=== PATIENT | female | born 1970 | race Caucasian/White ===

== ENCOUNTER → 2019-08-07 10:33 | Outpatient (BNVA) | payer SELFPAY | PROVIDERS: Family Provider Nurse Practitioner Family; PCP Nurse Practitioner Family; Visit Provider Family Medicine | DX: R21 Rash and other nonspecific skin eruption (principal); I10 Essential (primary) hypertension; I16.0 Hypertensive urgency | CPT/HCPCS: 80053; 83516; 85007; 85027; 86160; 86431; 86705; 86706; 86803; 87340; 87806 ==

== ENCOUNTER → 2019-11-14 09:05 | Outpatient (BNVA) | payer SELFPAY | PROVIDERS: Family Provider Nurse Practitioner Family; PCP Nurse Practitioner Family; Visit Provider Internal Medicine Rheumatology | DX: R76.8 Other specified abnormal immunological findings in serum (principal); Z79.899 Other long term (current) drug therapy; R21 Rash and other nonspecific skin eruption; F10.10 Alcohol abuse, uncomplicated; F17.210 Nicotine dependence, cigarettes, uncomplicated; L93.1 Subacute cutaneous lupus erythematosus; T46.4X5D Adverse effect of angiotensin-converting-enzyme inhibitors, subsequent encounter | CPT/HCPCS: 99204 ==

== ENCOUNTER 2019-12-04 09:52 | Outpatient (CLI) | payer SELFPAY ==
[2019-12-04 10:47] LABS: Bilirubin Urine Neg (NEGATIVE); Blood Urine Neg (Negative); Glucose Urine UA Norm (Normal); Ketones Urine Negative (Negative); Leukocyte Esterase Urine Negative (Negative); Nitrate Urine Negative (Negative); Protein Urine Neg (Negative); Specific Gravity, Urine 1.015 (1.005-1.030); Urine Appearance Clear (CLEAR); Urine Color Straw (Yellow); Urobilinogen Urine Norm (Negative); pH Urine 7 (5-7)
[2019-12-04 10:49] LABS: Add Urine Culture? No; Bacteria Urine TRACE; WBC Urine 0-4 /hpf (0-5)
[2019-12-04 11:00] LABS: Urine Creatinine 33 mg/dL (28-217); Urine Protein Random 4 mg/dL
[2019-12-06 13:44] LABS: Quantiferon Mitogen 8.02 IU/mL; Quantiferon Nil 0.01 IU/mL; Quantiferon Plus TB1 0.01 IU/mL; Quantiferon TB Gold NEGATIVE (NEGATIVE)
== END 2019-12-04 09:53 | disposition home or self-care (01) ==
PROVIDERS: PCP Nurse Practitioner Family; Visit Provider Internal Medicine Rheumatology
DX: L93.1 Subacute cutaneous lupus erythematosus (principal); Z79.899 Other long term (current) drug therapy
CPT/HCPCS: 81001; 82570; 84156; 86480

== ENCOUNTER → 2019-12-19 11:03 | Outpatient (BNVA) | payer SELFPAY | PROVIDERS: PCP Nurse Practitioner Family; Visit Provider Internal Medicine Rheumatology | DX: L93.1 Subacute cutaneous lupus erythematosus (principal); M05.9 Rheumatoid arthritis with rheumatoid factor, unspecified; Z79.899 Other long term (current) drug therapy; R21 Rash and other nonspecific skin eruption; Z79.52 Long term (current) use of systemic steroids; F17.210 Nicotine dependence, cigarettes, uncomplicated | CPT/HCPCS: 99214 ==

== ENCOUNTER → 2020-04-04 10:39 | Outpatient (BNVA) | payer SELFPAY | PROVIDERS: PCP Nurse Practitioner Family; Referring Provider Family Medicine; Visit Provider Family Medicine | DX: Z79.899 Other long term (current) drug therapy (principal); I10 Essential (primary) hypertension | CPT/HCPCS: 80048; 80076; 83735; 85025; 85651; 86140 ==

== ENCOUNTER → 2020-05-26 09:11 | Outpatient (BNVA) | payer SELFPAY | PROVIDERS: PCP Nurse Practitioner Family; Visit Provider Family Medicine | DX: I10 Essential (primary) hypertension (principal); G25.81 Restless legs syndrome; I16.0 Hypertensive urgency; L93.1 Subacute cutaneous lupus erythematosus | CPT/HCPCS: 80053; 80076; 82565; 83735; 85025; 85651; 86140 ==

== ENCOUNTER → 2020-09-15 09:09 | Outpatient (BNVA) | payer SELFPAY | PROVIDERS: PCP Family Medicine; Visit Provider Internal Medicine Rheumatology | DX: M05.79 Rheumatoid arthritis with rheumatoid factor of multiple sites without organ or systems involvement (principal); Z79.899 Other long term (current) drug therapy; M19.90 Unspecified osteoarthritis, unspecified site | CPT/HCPCS: 36415; 80076; 82565; 85025; 86140 ==

== ENCOUNTER → 2020-12-31 09:25 | Outpatient (BNVA) | payer SELFPAY | PROVIDERS: PCP Family Medicine; Visit Provider Family Medicine | DX: I10 Essential (primary) hypertension (principal); G62.9 Polyneuropathy, unspecified; M05.79 Rheumatoid arthritis with rheumatoid factor of multiple sites without organ or systems involvement; G25.81 Restless legs syndrome; Z91.11 Patient's noncompliance with dietary regimen; I16.0 Hypertensive urgency | CPT/HCPCS: 80053; 80061; 85651; 86140 ==

== ENCOUNTER → 2021-05-08 17:50 | Outpatient (BNVA) | payer SELFPAY | PROVIDERS: PCP Family Medicine; Visit Provider Family Medicine | DX: I10 Essential (primary) hypertension (principal); J44.9 Chronic obstructive pulmonary disease, unspecified | CPT/HCPCS: 80053; 80061; 85025; 86140 ==

== ENCOUNTER → 2022-11-12 10:00 | Outpatient (BNVA) | payer MEDICAID, SELFPAY | PROVIDERS: Visit Provider Podiatrist Foot & Ankle Surgery | DX: Q82.8 Other specified congenital malformations of skin (principal) | CPT/HCPCS: 17110; 99203 ==

== ENCOUNTER 2024-12-04 14:33 | Inpatient (IN) | payer MEDICAID, SELFPAY ==
[2024-12-04] VITALS (12 sets, daily range): BP systolic 130–177; BP diastolic 71–109; PULSE 70–87; RESP 19–28; TEMP 36.5–37.1; O2SAT 90–99; BMI 30.4; BMI 31.1
--- NOTE | 2024-12-04 14:49 | ECG_ITS ---
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 Measurements Intervals [place] Rate: 76 P: 164 WA: 172 QRS: 169 QRSD: 104 T: 15 QT: 419 QTc: 472 Interpretive Statements SINUS RHYTHM WITH OCCASIONAL VENTRICULAR PREMATURE COMPLEXES ARM LEADS REVERSED [INVERTED P AND QRS IN I] possible old septal infarction ST-T changes in the anterolateral and inferior leads Compared to ECG 04/24/2018 17:45:31 Ventricular premature complex(es) now present Sinus tachycardia no longer present T-wave abnormality no longer present Possible ischemia no longer present Electronically Signed On 12-06-2024 06:14:58 CDT by Kasi Don M.D. [email or web address] [id number]
--- NOTE | 2024-12-04 14:53 | ECG_ITS ---
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 Measurements Intervals [place] Rate: 75 P: 21 PA: 174 QRS: 29 QRSD: 108 T: 178 QT: 418 QTc: 467 Interpretive Statements SINUS RHYTHM WITH OCCASIONAL VENTRICULAR PREMATURE COMPLEXES SEPTAL MYOCARDIAL INFARCTION , OF INDETERMINATE AGE [40+ ms Q WAVE IN V1/V2] MODERATE T-WAVE ABNORMALITY, CONSIDER LATERAL ISCHEMIA [-0.1+ mV T-WAVE IN I/aVL/V5/V6] MODERATE T-WAVE ABNORMALITY, CONSIDER INFERIOR ISCHEMIA [-0.1+ mV T-WAVE IN II/aVF] Compared to ECG 12/04/2024 14:48:28 Myocardial infarct finding now present T-wave abnormality now present Possible ischemia now present Electronically Signed On 12-06-2024 06:13:51 CDT by Kasi Don M.D. [email or web address] [id number]
--- NOTE | 2024-12-04 14:53 | XRR_ITS ---
PROCEDURE INFORMATION: Exam: XR Chest Exam date and time: 12/04/2024 2:58 PM Age: 54 years old Clinical indication: Shortness of breath; Additional info: SOB TECHNIQUE: Imaging protocol: Radiologic exam of the chest. Views: 1 view. COMPARISON: CR XR chest 1V [id number] 04/24/2018 6:09 PM FINDINGS: Lungs: Generalized increased pulmonary markings or vascularity within the lungs, more prominent lower lungs. Mild subsegmental atelectasis lower lungs as well. This demonstrates interval change from previous exam. No consolidation. Pleural spaces: No significant pleural effusion the costophrenic angles do not appear as sharp as prior exam and trace effusion not excluded. No pneumothorax. Heart/Mediastinum: Borderline prominent cardiac size. Bones/joints: Visualized osseous structures show no acute abnormality. Slight thoracic scoliosis. XR/XR chest 1V portable [id number] IMPRESSION: Borderline prominent cardiac size. Generalized increased pulmonary markings or vascularity within the lungs, more prominent lower lungs, most suggestive of pulmonary vascular congestion or CHF. Bilateral pneumonitis less likely. Possible trace effusion without significant effusion.
--- NOTE | 2024-12-04 15:08 | W.ED.SOB ---
HPI - SOB/Dyspnea General: Chief Complaint: Shortness of Breath/Dyspnea Stated Complaint: RESP. DISTRESS Time Seen by Provider: 12/04/24 14:49 Source: patient and EMS Mode of arrival: EMS Limitations: no limitations History of Present Illness: HPI Narrative: 54-year-old female history of COPD states she has been having increasing shortness of breath throughout the day. Patient is currently requiring 5 L oxygen did get albuterol and route. Patient also had some mild chest pain states that is mainly with her respiratory distress and cough. Pain was sharp in nature was given aspirin and nitro she denies any fever does not wear oxygen at home Associated symptoms: Reports chest pain; Deny abdominal pain, fever(s), nausea or vomiting Related Data Home Medications ?Medication ?Instructions ?Recorded ?Confirmed albuterol sulfate 2.5 mg/3 mL 2.5 mg inhalation Q4H PRN 12/04/24 12/04/24 (0.083 %) solution for nebulization Shortness Of Breath amitriptyline 25 mg tablet 25 mg PO BEDTIME 12/04/24 12/04/24 buspirone 5 mg tablet 5 mg PO Q12H PRN Anxiety 12/04/24 12/04/24 cholecalciferol (vitamin D3) 125 125 mcg PO DAILY 12/04/24 12/04/24 mcg (5,000 unit) tablet (Vitamin D3) duloxetine 60 mg capsule,delayed 60 mg PO DAILY 12/04/24 12/04/24 release fluticasone 250 mcg-salmeterol 50 2 inh inhalation BID 12/04/24 12/04/24 mcg/dose blistr powdr for inhalation (Advair Diskus) hydrochlorothiazide 12.5 mg capsule 12.5 mg PO DAILY 12/04/24 12/04/24 hydroxychloroquine 200 mg tablet 200 mg PO BID 12/04/24 12/04/24 ibuprofen 800 mg tablet 800 mg PO Q6H 12/04/24 12/04/24 metoprolol succinate 200 mg 200 mg PO DAILY 12/04/24 12/04/24 tablet,extended release 24 hr omeprazole 20 mg capsule,delayed 20 mg PO DAILY 12/04/24 12/04/24 release prednisone 5 mg tablet 5 mg PO DAILY 12/04/24 12/04/24 tizanidine 2 mg tablet 20 mg PO BEDTIME 12/04/24 12/04/24 Previous Rx's ?Medication ?Instructions ?Recorded losartan 100 mg tablet 100 mg PO DAILY 30 days #30 tabs 09/14/21 Allergies Allergy/AdvReac Type Severity Reaction Status Date / Time lisinopril Allergy Intermediate rash Verified 08/10/24 09:34 leflunomide Allergy hives Verified 08/10/24 09:34 Penicillins Allergy unknown Verified 08/10/24 09:34 Review of Systems Const: Denies: fever(s), chills, body aches or change in appetite ENMT: Denies: throat pain or dental pain Card: Reports: chest pain Resp: Reports: dyspnea and non-productive cough GI: Denies: abdominal pain, nausea, vomiting or diarrhea Musc: Denies: neck pain or back pain Skin/Breast: Denies: rash Neuro: Denies: headache(s) PFSH ED PFSH: Medical History Immunization counseling High risk medication use Seropositive rheumatoid arthritis of multiple sites Celebrex caused rash. Alcohol abuse SS-A antibody positive Immunization counseling High risk medication use Subacute cutaneous lupus erythematosus GERD (gastroesophageal reflux disease) Anxiety Benign essential hypertension Rash maybe with HCTZ and lisinopril COPD (chronic obstructive pulmonary disease) TOOTIE (generalized anxiety disorder) Lichenoid actinic keratosis Asymptomatic hypertensive urgency Surgical History H/O section Family History Other CAD (coronary artery disease) Cancer Diabetes Denies family history of Rheumatoid arthritis Chronic kidney disease (CKD) Systemic lupus erythematosus (SLE) in adult Hypertension Stroke Social History Smoking and tobacco/nicotine status: unknown if used tobacco/nicotine Quit status (tobacco/nicotine): not considering quitting Alcohol intake: current Alcohol intake frequency: 0-2 Drinks per Day Substance/Drug Use: never Female Reproductive History: Spontaneous abortions: No Physical Exam Const: COMMON NORMALS: patient oriented x3 GENERAL APPEARANCE: in distress HENMT: COMMON NORMALS: normocephalic and atraumatic HEAD & SCALP: normocephalic and atraumatic Eye: COMMON NORMALS: conjunctivae normal CONJUNCTIVA: Yes conjunctivae normal Neck/C-Spine: COMMON NORMALS: full ROM and supple Chest: COMMONS NORMALS: normal inspection of the chest Resp: EFFORT & INSPECTION: Yes tachypneic and Yes respiratory distress AUSCULTATION: rales and wheezes Cardio: COMMON NORMALS: regular rate, regular rhythm and No murmurs present (Cardio) RATE: regular rate RHYTHM: regular rhythm GI: COMMON NORMALS: Normal to inspection, nondistended, normoactive bowel sounds present, Soft to palpation, non-tender and no masses PALPATION: Yes Soft to palpation Extremity: COMMON NORMALS: normal to inspection and full ROM Neuro: COMMON NORMALS: patient oriented x3, moves all extremities and no focal motor deficits Psych: COMMON NORMALS: mental status grossly normal, Normal thought process present and cooperative THOUGHT PROCESS: Normal thought process present Skin: COMMON NORMALS: no rashes or lesions noted and no wounds GENERAL SKIN EXAM: no rashes or lesions noted Course Vital Signs: Vital signs: Vital Signs Temperature 97.7 F 12/04/24 14:44 Pulse Rate 82 12/04/24 16:30 Respiratory Rate 19 H 12/04/24 16:30 Blood Pressure 130/71 12/04/24 16:15 Pulse Oximetry 99 12/04/24 16:30 Oxygen Delivery Me thod Nasal Cannula 12/04/24 16:30 Oxygen Flow Rate 3 12/04/24 16:30 MDM - SOB/Dyspnea Medical Decision Making Patient presents here with shortness of breath does have an elevated BNP pulm edema on x-ray and CT likely new onset congestive heart failure she has had no chest pain here spoke to hospitalist will admit at this time. Medical Records I reviewed the patient's medical records. Lab Data I reviewed the patient's lab results. 12/04/24 15:00 12/04/24 15:00 Labs/Radiology: Radiology Impressions Chest X-Ray 12/04/24 14:53 IMPRESSION: Borderline prominent cardiac size. Generalized increased pulmonary markings or vascularity within the lungs, more prominent lower lungs, most suggestive of pulmonary vascular congestion or CHF. Bilateral pneumonitis less likely. Possible trace effusion without significant effusion. Chest CTA 12/04/24 15:38 IMPRESSION: 1. No CT findings of pulmonary embolus. 2. Scattered ill-defined ground-glass opacity within the lungs that is more prominent more confluent within the lower lungs, along with small bilateral posterior pleural effusions and borderline to slightly prominent cardiac size. Findings suggest CHF with scattered edema and small effusions. 3. Mild arteriosclerosis thoracic aorta [id number] coronary artery calcification. 4. Incidental findings of cholelithiasis. Laboratory Results WBC 12.47 10^3/uL (3.29-11.43) H 12/04/24 15:00 RBC 3.95 10^6/uL (3.85-5.65) 12/04/24 15:00 Hgb 13.90 g/dL (11.27-16.99) 12/04/24 15:00 Hct 40.8 % (36-47) 12/04/24 15:00 MCV 103.3 fl (85-98) H 12/04/24 15:00 MCH 35.2 pg (27-33) H 12/04/24 15:00 MCHC 34.1 g/dL (30-55) 12/04/24 15:00 RDW 16.7 % (12.1-15.1) H 12/04/24 15:00 Plt Count 226 10^3/cmm (157-399) 12/04/24 15:00 MPV 9.1 fL (7.4-10.4) 12/04/24 15:00 Neut % (Auto) 83.6 % 12/04/24 15:00 Lymph % (Auto) 9.3 % 12/04/24 15:00 Mcclain % (Auto) 5.3 % 12/04/24 15:00 Eos % (Auto) 0.6 % 12/04/24 15:00 Baso % (Auto) 0.4 % 12/04/24 15:00 Neut # (Auto) 10.42 10^3/uL (1.8-7.7) H 12/04/24 15:00 Lymph # (Auto) 1.2 10^3/uL (0.8-4.8) 12/04/24 15:00 Mcclain # (Auto) 0.7 10^3/uL (0.2-0.9) 12/04/24 15:00 Eos # (Auto) 0.1 10^3/uL (0.0-0.8) 12/04/24 15:00 Baso # (Auto) 0.1 10^3/uL (0.0-0.1) 12/04/24 15:00 Nucleated RBC % (auto) 0 % 12/04/24 15:00 Nucleated RBCs # 0.0 /100WBC 12/04/24 15:00 PT 13.00 SECONDS (12.1-14.9) 12/04/24 15:00 INR 0.91 (0.8-1.2) 12/04/24 15:00 Specimen Type Arterial 12/04/24 15:43 Sample Site Radial, left 12/04/24 15:43 ABG pH 7.43 (7.35-7.45) 12/04/24 15:43 ABG pCO2 43.6 mmHg (35-45) 12/04/24 15:43 ABG pO2 81.4 mmHg (80.0-100.0) 12/04/24 15:43 ABG HCO3 28.7 mmol/L (22-26) H 12/04/24 15:43 ABG Base Excess 3.7 mmol/L (-2.0-2.0) H 12/04/24 15:43 Chandana Test Pos 12/04/24 15:43 Hematocrit 43.6 % (37-47) 12/04/24 15:43 Hgb O2 Saturation 93.1 % (95-100) L 12/04/24 15:43 Carboxyhemoglobin 3.2 %THgb (0.4-20.1) 12/04/24 15:43 Methemoglobin 0.2 % (0.4-1.5) L 12/04/24 15:43 Total Hemoglobin 14.2 g/dL (12-16) 12/04/24 15:43 O2 Delivery Device Nc 12/04/24 15:43 O2 Liters/Min 4.0 % 12/04/24 15:43 Fox Farmer ID Wal[facility] 12/04/24 15:43 Sodium 139 mmol/L (136-145) 12/04/24 15:00 Potassium 3.5 mmol/L (3.5-5.1) 12/04/24 15:00 Chloride 98 mmol/L (98-107) 12/04/24 15:00 Carbon Dioxide 27 mmol/L (22-29) 12/04/24 15:00 Anion Gap 17.5 (5-19) 12/04/24 15:00 BUN 20 mg/dL (6-20) 12/04/24 15:00 Creatinine 0.9 mg/dL (0.5-0.9) 12/04/24 15:00 GFR Calculation 64.8 mL/min (90-130) L 12/04/24 15:00 Glucose 184 mg/dL (65-115) H 12/04/24 15:00 Calculated Osmolality 295 mOsm/kg (285-295) 12/04/24 15:00 Calcium 9.4 mg/dL (8.5-10.5) 12/04/24 15:00 Total Bilirubin 0.4 mg/dL (0.15-1.2) 12/04/24 15:00 AST 51 U/L (0-32) H 12/04/24 15:00 ALT 33 U/L (0-33) 12/04/24 15:00 Alkaline Phosphatase 114 U/L (35-105) H 12/04/24 15:00 Troponin T Baseline 39 ng/L (0-10) H 12/04/24 15:00 NT-Pro-B Natriuret Pep 2667 pg/mL (0-125) H 12/04/24 15:00 Total Protein 6.2 g/dL (6.6-8.7) L 12/04/24 15:00 Albumin 3.9 g/dL (3.5-5.2) 12/04/24 15:00 Globulin 2.3 g/dL (1.3-4.6) 12/04/24 15:00 Influenza A (PCR) Negative (Negative) 12/04/24 15:10 Influenza Type B (PCR) Negative (Negative) 12/04/24 15:10 RSV (PCR) Negative (Negative) 12/04/24 15:10 SARS-CoV-2 (PCR) Negative (Negative) 12/04/24 15:10 All radiology interpretation(s) finalized by discharge Discharge Plan Discharge Patient Disposition: Admitted As Inpatient Clinical Impression: Pulmonary edema, Acute respiratory failure with hypoxia Condition: Stable Coding Level of Care Code ED Medicaid Plan Compliance Director for Billie Lopez
[2024-12-04 15:18] LABS: Basophils # 0.1 10^3/uL (0.0-0.1); Basophils % 0.4 %; Eosinophils # 0.1 10^3/uL (0.0-0.8); Eosinophils % 0.6 %; Hematocrit 40.8 % (36-47); Lymphocytes # 1.2 10^3/uL (0.8-4.8); Lymphocytes % 9.3 %; Mean Corpuscular HGB Conc 34.1 g/dL (30-55); Mean Corpuscular Hemoglobin 35.2 pg (27-33); Mean Corpuscular Volume 103.3 fl (85-98); Mean Platelet Volume 9.1 fL (7.4-10.4); Monocytes # 0.7 10^3/uL (0.2-0.9); Monocytes % 5.3 %; Neutrophils # 10.42 10^3/uL (1.8-7.7); Neutrophils % 83.6 %; Nucleated Red Blood Cells % 0 %; Platelet Count 226 10^3/cmm (157-399); Red Blood Count 3.95 10^6/uL (3.85-5.65); Red Cell Distribution Width 16.7 % (12.1-15.1); White Blood Count 12.47 10^3/uL (3.29-11.43)
[2024-12-04 15:28] LABS: INR 0.91 (0.8-1.2)
[2024-12-04 15:35] LABS: Troponin(5th) Baseline 39 ng/L (0-10)
--- NOTE | 2024-12-04 15:38 | CTR_ITS ---
PROCEDURE INFORMATION: Exam: CTA Chest With Contrast Exam date and time: 12/04/2024 4:21 PM Age: 54 years old Clinical indication: Shortness of breath; Additional info: SOB TECHNIQUE: Imaging protocol: Computed tomographic angiography of the chest with contrast. Exam focused on the arteries. 3D rendering (Not supervised by radiologist): MIP and/or 3D reconstructed images were created by the technologist. Radiation optimization: All CT scans at this facility use at least one of these dose optimization techniques: automated exposure control; mA and/or kV adjustment per patient size (includes targeted exams where dose is matched to clinical indication); or iterative reconstruction. Contrast material: OMNI 350; Contrast volume: 100 ml; Contrast route: INTRAVENOUS (IV); COMPARISON: CR XR chest 1V portable [id number] 12/04/2024 2:58 PM RADIATION DOSE METRICS: Total DLP (mGy-cm): 411.8 FINDINGS: Pulmonary arteries: No hypodense filling defect is seen within the pulmonary arteries or their branches to indicate pulmonary embolus. Aorta: Mild arteriosclerosis of the thoracic aorta with mild prominence of the ascending thoracic aorta of 3.8 cm. No findings to indicate dissection. Lungs: Lung windows demonstrate scattered ill-defined ground-glass opacity within the lungs with more prominent or confluent appearance within the lower lungs. Component of basilar atelectasis. No consolidation. Pleural spaces: Small bilateral posterior pleural effusions are seen. No pneumothorax. Heart: Borderline to slightly prominent cardiac size, particularly left side of the heart. No significant pericardial effusion. Slsw-ua-[id number] coronary artery calcification. RV/LV ratio is less than 1. Lymph nodes: A few mildly reactive mediastinal lymph nodes without significant or pathologically enlarged appearing lymph nodes. Gallbladder and biliary ducts: Images through the upper-most abdomen demonstrate cholelithiasis. Bones/joints: Mild spondylotic change thoracic spine. Mild thoracic dextroscoliosis. Soft tissues: Unremarkable. CT/CT angio chest PE protcl [id number] IMPRESSION: 1. No CT findings of pulmonary embolus. 2. Scattered ill-defined ground-glass opacity within the lungs that is more prominent more confluent within the lower lungs, along with small bilateral posterior pleural effusions and borderline to slightly prominent cardiac size. Findings suggest CHF with scattered edema and small effusions. 3. Mild arteriosclerosis thoracic aorta [id number]-[id number]-[id number] coronary artery calcification. 4. Incidental findings of cholelithiasis.
[2024-12-04 15:52] LABS: Influenza A NEGATIVE (Negative); Influenza B NEGATIVE (Negative); Respiratory Syncytial Virus Ce NEGATIVE (Negative); SARS-CoV-2 PCR NEGATIVE (Negative)
[2024-12-04 15:54] LABS: ABG PCO2 43.6 mmHg (35-45); ABG PH Result 7.43 (7.35-7.45); Arterial Blood Gas Hematocrit 43.6 % (37-47); Base Excess ABG 3.7 mmol/L (-2.0-2.0); Blood Gas Allen Test Pos; Blood Gas Operator Identificat WALCI; Blood Gas Sample Site Radial, left; Blood Gas Sample Type Arterial; Carboxyhemoglobin 3.2 %THgb (0.4-20.1); HCO3 ABG 28.7 mmol/L (22-26); HGB O2 Sat 93.1 % (95-100); Methemoglobin 0.2 % (0.4-1.5); Oxygen Device NC; PO2 ABG 81.4 mmHg (80.0-100.0); Total Hemoglobin 14.2 g/dL (12-16)
[2024-12-04] MEDS: albuterol 2.5 mg/3 mL Neb INHALATION (15:59)
[2024-12-04 16:12] LABS: Alanine Aminotransferase 33 U/L (0-33); Albumin Level 3.9 g/dL (3.5-5.2); Alkaline Phosphatase 114 U/L (35-105); Anion Gap 17.5 (5-19); Aspartate Amino Transferase 51 U/L (0-32); Blood Urea Nitrogen 20 mg/dL (6-20); Calcium 9.4 mg/dL (8.5-10.5); Carbon Dioxide 27 mmol/L (22-29); Chloride 98 mmol/L (98-107); Creatinine Clr Calc Pharmacy 74.2679; Globulin 2.3 g/dL (1.3-4.6); Glomerular Filtration Rate 64.8 mL/min (90-130); Glucose 184 mg/dL (65-115); NT Pro B Type Natriuretic Pept 2667 pg/mL (0-125); Osmolality Calculated 295 mOsm/kg (285-295); Potassium 3.5 mmol/L (3.5-5.1); Sodium 139 mmol/L (136-145); Total Bilirubin 0.4 mg/dL (0.15-1.2); Total Protein 6.2 g/dL (6.6-8.7)
[2024-12-04] MEDS: iohexol 350 mg/mL 500 mL Btl (per mL) IV (16:22)
[2024-12-04] MEDS: methylPREDNISolone sod succ 125 mg/2 mL INJ IVP (16:34)
[2024-12-04] MEDS: AZITHROMYCIN ADD-Vantage 500 MG in 0.9% NaCl ADD-Vantage 250 ML 250 MG IV (16:35)
[2024-12-04] MEDS: cefTRIAXone 1,000 mg SDV 1000 MG IVP (16:35)
--- NOTE | 2024-12-04 17:30 | USCV_ITS ---
Arlen Santo Age: 54 Gender: F : 1970 Exam Date: 12/04/2024 22:12 Ordering Phys: Mason Gurrola DO Technologist: JAVIER [place] [facility] [place] new dx CHF, history of COPD, O2-dependent 5L BP: 173 / 91 HR: 79 Rhythm: Sinus Technical Quality: Adequate MEASUREMENTS (Male / Female) Normal Values 2D ECHO LV Diastolic Diameter PLAX 4.8 cm 4.2 - 5.9 / 3.9 - 5.3 cm IVS Diastolic Thickness 1.5 cm 0.6 - 1.0 / 0.6 - 0.9 cm IVS Systolic Thickness 1.5 cm LVPW Diastolic Thickness 1.4 cm 0.6 - 1.0 / 0.6 - 0.9 cm LVPW Systolic Thickness 2.1 cm LVOT Diameter 2.4 cm LV Ejection Fraction 2D Teich 65.0 % LV Ejection Fraction MOD 4C 59.9 % LV Ejection Fraction MOD 2C 39.0 % LV Ejection Fraction 2C AL 41.1 % LA Diameter 3.1 cm Aorta at Sinotubular Diameter 2.4 cm IVC Diameter 1.8 cm M-MODE LA Ao Ratio MM 1.2 AV Cusp Separation MM 1.8 cm DOPPLER AV Peak Velocity 146.0 cm/s LVOT Peak Velocity 76.0 cm/s AV Area Cont Eq vti 2.8 cm squared AV Area Cont Eq pk 2.3 cm squared MV Peak Velocity 77.0 cm/s MV Area PHT 4.8 cm squared Mitral E to A Ratio 1.2 TV Peak E Velocity 38.0 cm/s PV Peak Velocity 112.0 cm/s FINDINGS Left Ventricle Moderate left ventricular hypertrophy. Normal left ventricular size and systolic function, EF 60%. Mild hypokinesia of the basal inferolateral segment.Grade II/IV diastolic dysfunction, moderately elevated filling pressures. Right Ventricle The right ventricle is normal in size and function. Right Atrium The right atrium is normal in size. Left Atrium Mildly increased left atrial size. Mitral Valve No gross abnormalities noted Aortic Valve Mild to moderate aortic valve regurgitation. Thickened aortic valve. Tricuspid Valve No gross abnormalities noted Pulmonic Valve Pulmonic valve not well visualized. Pericardium Normal pericardium without effusion. Aorta Normal aortic annulus size. IVC Normal inferior vena cava. CONCLUSIONS Moderate left ventricular hypertrophy. Normal left ventricular size and systolic function, EF 60%. Mild hypokinesia of the basal inferolateral segment.Grade II/IV diastolic dysfunction, moderately elevated filling pressures. Mildly increased left atrial size. Mild to moderate aortic valve regurgitation. Thickened aortic valve. There is no pericardial effusion. There are no intracardiac masses. No similar previous studies are available for comparison Dr Kasi Don MD [facility] (Electronically Signed) Final Date: 05 December 2024 07:52 S
--- NOTE | 2024-12-04 17:31 | PM.HP ---
Providers/Chief Complaint Admitting Physician: Masno Gurrola DO Primary Care Provider: Roberto Carlos Carrera Chief Complaint: RESP. DISTRESS History of Present Illness Arlen Santo is a 54 year old female to the emergency due to shortness of breath that have been increasing throughout the day. 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 It was very distressing to her to only be able to give her address. She was unable to even speak to her neighbor asked for help. In the emergency room she also reported some chest pain. Initially it was felt that she had COPD exacerbation or possible pneumonia; however: CT to rule out PE was negative for PE and found pulmonary edema. She was started on IV antibiotics and now was given Lasix. Initially she was on 5 L but has been able to wean down to 3 L and she is feeling remarkably better. She denies any history of CHF. She does have a longstanding hypertension currently her blood pressures are elevated in the ER. Patient has lupus and she takes Lasix and hide hydroxychloroquine. Otherwise she takes ibuprofen on a regular basis. Also of note she was recently on Omnicef for a lung infection but she did not finish her antibiotics Review of Systems Const: Denies: fever(s) or chills Eyes: Denies: change in vision ENMT: Denies: throat pain or nasal congestion Card: Reports: chest pain (Reports that it is actually located in her abdomen and related to GERD); Denies: palpitations Resp: Reports: dyspnea; Denies: productive cough GI: Reports: heartburn (Takes omeprazole); Denies: abdominal pain, nausea, vomiting or change in stool character : Denies: dysuria Musc: Denies: back pain or extremity pain Skin/Breast: Denies: rash or lesions Neuro: Denies: headache(s) or dizziness Psych: Denies: anxiety or depression Kip/Lymph: Denies: easy bruising or easy bleeding Medications/Allergies Home Medications ?Medication ?Instructions ?Recorded ?Confirmed ?Last Taken ?Type losartan 100 mg tablet 100 mg PO DAILY 30 days #30 tabs 09/14/21 12/04/24 12/04/24 Rx albuterol sulfate 2.5 mg/3 mL 2.5 mg inhalation Q4H PRN 12/04/24 12/04/24 Unknown History (0.083 %) solution for nebulization Shortness Of Breath amitriptyline 25 mg tablet 25 mg PO BEDTIME 12/04/24 12/04/24 12/03/24 History buspirone 5 mg tablet 5 mg PO Q12H PRN Anxiety 12/04/24 12/04/24 Unknown History cholecalciferol (vitamin D3) 125 125 mcg PO DAILY 12/04/24 12/04/24 12/04/24 History mcg (5,000 unit) tablet (Vitamin D3) duloxetine 60 mg capsule,delayed 60 mg PO DAILY 12/04/24 12/04/24 12/04/24 History release fluticasone 250 mcg-salmeterol 50 2 inh inhalation BID 12/04/24 12/04/24 12/04/24 History mcg/dose blistr powdr for inhalation (Advair Diskus) hydrochlorothiazide 12.5 mg capsule 12.5 mg PO DAILY 12/04/24 12/04/24 12/04/24 History hydroxychloroquine 200 mg tablet 200 mg PO BID 12/04/24 12/04/24 Unknown History ibuprofen 800 mg tablet 800 mg PO Q6H 12/04/24 12/04/24 12/04/24 History metoprolol succinate 200 mg 200 mg PO DAILY 12/04/24 12/04/24 12/04/24 History tablet,extended release 24 hr omeprazole 20 mg capsule,delayed 20 mg PO DAILY 12/04/24 12/04/24 12/04/24 History release prednisone 5 mg tablet 5 mg PO DAILY 12/04/24 12/04/24 12/04/24 History tizanidine 2 mg tablet 20 mg PO BEDTIME 12/04/24 12/04/24 12/03/24 History Allergies Allergy/AdvReac Type Severity Reaction Status Date / Time lisinopril Allergy Intermediate rash Verified 08/10/24 09:34 leflunomide Allergy hives Verified 08/10/24 09:34 Penicillins Allergy unknown Verified 08/10/24 09:34 PFSH Acute PFSH: Medical History Immunization counseling High risk medication use Seropositive rheumatoid arthritis of multiple sites Celebrex caused rash. Alcohol abuse SS-A antibody positive Immunization counseling High risk medication use Subacute cutaneous lupus erythematosus GERD (gastroesophageal reflux disease) Anxiety Benign essential hypertension Rash maybe with HCTZ and lisinopril COPD (chronic obstructive pulmonary disease) TOOTIE (generalized anxiety disorder) Lichenoid actinic keratosis Asymptomatic hypertensive urgency Surgical History H/O section Family History Other CAD (coronary artery disease) Cancer Diabetes Denies family history of Rheumatoid arthritis Chronic kidney disease (CKD) Systemic lupus erythematosus (SLE) in adult Hypertension Stroke Social History Smoking and tobacco/nicotine status: unknown if used tobacco/nicotine Quit status (tobacco/nicotine): not considering quitting Alcohol intake: current Alcohol intake frequency: 0-2 Drinks per Day Substance/Drug Use: never Female Reproductive History: Spontaneous abortions: No Vitals/I&O/Wt Last Vital Signs Temp 97.7 F 12/04/24 14:44 Pulse 87 12/04/24 17:15 Resp 19 H 12/04/24 16:30 BP 173/91 12/04/24 17:15 Pulse Ox 93 12/04/24 17:15 O2 Del Method Nasal Cannula 12/04/24 17:15 O2 Flow Rate 3 12/04/24 17:15 Weight last 48 hrs Weight 83.007 kg Physical Exam Narrative: 54-year-old white female who appears older than her stated age is in mild distress due to shortness of breath. Neuro she is alert and oriented to person place time and situation her exam is nonfocal HEENT head is normocephalic atraumatic pupils equal round reactive to light and accommodation extraocular muscles are intact there is no scleral icterus neck is supple no JVD carotid bruits or lymphadenopathy mucous membranes are moist and pink without lesions or exudates Heart minimally tachycardic no murmur click gallop or rub Lungs bilateral lower lung zones positive for crackles a few wheezes on expiration Abdomen obese soft nontender nondistended positive bowel sounds no hepatosplenomegaly Extremities +1 pitting edema fdc to her knee Back no CVA tenderness mild kyphosis no scoliosis Psych mood and affect are appropriate for illness Skin no rashes or lesions noted Data 12/04/24 15:00 12/04/24 15:00 Micro: Microbiology 12/04/24 15:55 Blood Culture - Preliminary Blood SPECIMEN COLLECTED 12/04/24 16:00 Blood Culture - Preliminary Blood SPECIMEN COLLECTED CTA Chest: Radiologist's impression: IMPRESSION: 1. No CT findings of pulmonary embolus. 2. Scattered ill-defined ground-glass opacity within the lungs that is more prominent more confluent within the lower lungs, along with small bilateral posterior pleural effusions and borderline to slightly prominent cardiac size. Findings suggest CHF with scattered edema and small effusions. 3. Mild arteriosclerosis thoracic aorta [id number] coronary artery calcification. 4. Incidental findings of cholelithiasis. EKG 1: My Interpretation: Normal sinus rhythm at a rate of 75. 1 PAC noted Poor R wave progression suggestive of a septal ND historically EKG computer-generated impression: SINUS RHYTHM WITH OCCASIONAL VENTRICULAR PREMATURE COMPLEXES SEPTAL MYOCARDIAL INFARCTION , OF INDETERMINATE AGE [40+ ms Q WAVE IN V1/V2] MODERATE T-WAVE ABNORMALITY, CONSIDER LATERAL ISCHEMIA [-0.1+ mV T-WAVE IN I/aVL/V5/V6] MODERATE T-WAVE ABNORMALITY, CONSIDER INFERIOR ISCHEMIA A&P Assessment and plan (1) New onset of congestive heart failure: Admit to CSU. Placed telemetry Follow troponins Lasix twice a day starting tomorrow. Dose to be given tonight from ER Echo tomorrow Hold beta-aster with new onset CHF (2) Pulmonary edema: As above (3) Acute respiratory failure with hypoxia: Currently on 3 L nasal cannula titrate as indicated (4) Tobacco use: Patient reports she is trying to quit and down to 2 cigarettes a day. She requests no patch. I encouraged her to quit. (5) GERD (gastroesophageal reflux disease): Continue omeprazole (6) Benign essential hypertension: Patient takes metoprolol 200 a day, losartan 100 a day hydrochlorothiazide 12.5 a day for blood pressure. Hold metoprolol and hydrochlorothiazide. Hydralazine and Imdur initiated for tomorrow morning PDMP PDMP Reviewed: Not Reviewed Attestations Medical Necessity Statement*: Patient requires a 2 midnight stay for new onset CHF she requires diuresis with monitoring of electrolytes echocardiogram and additional laboratory studies. She is at high risk of acute decompensation with further respiratory failure. Coding Level of Care Code Acute Code for Chg Fwd Diagnoses New onset of congestive heart failure I50.9 Pulmonary edema J81.1 Acute respiratory failure with hypoxia J96.01 Tobacco use Z72.0 GERD (gastroesophageal reflux disease) K21.9 Benign essential hypertension I10
[2024-12-04 17:35] LABS: Troponin 5 2HR 39.81 ng/L (0-10); Troponin 5 2HR Delta 0.81 ABS# (0-10)
[2024-12-04] MEDS: FUROsemide 10 mg/mL SDV 10mL 60 MG IVP (17:37)
[2024-12-04] MEDS: potassium chloride ER 20 mEq Tablet 40 MEQ PO (18:33)
[2024-12-04] MEDS: enoxaparin 40 mg/0.4 mL Syringe SUBCUT (18:33)
[2024-12-04] MEDS: hyDRALAzine 50 mg Tablet PO (20:45)
--- NOTE | 2024-12-04 20:53 | ECG_ITS ---
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 Measurements Intervals [place] Rate: 83 P: 33 AK: 171 QRS: 25 QRSD: 101 T: 178 QT: 382 QTc: 450 Interpretive Statements SINUS RHYTHM SEPTAL MYOCARDIAL INFARCTION , OF INDETERMINATE AGE [40+ ms Q WAVE IN V1/V2] MODERATE T-WAVE ABNORMALITY, CONSIDER ANTEROLATERAL ISCHEMIA [-0.1+ mV T-WAVE IN V3-V6] MODERATE T-WAVE ABNORMALITY, CONSIDER INFERIOR ISCHEMIA [-0.1+ mV T-WAVE IN II/aVF] Compared to ECG 12/04/2024 14:52:16 Ventricular premature complex(es) no longer present Myocardial infarct finding still present T-wave abnormality still present Possible ischemia still present Electronically Signed On 12-06-2024 06:26:49 CDT by Kasi Don M.D. [id number] [id number]
[2024-12-04 21:53] LABS: Troponin 5 6HR 33.05 ng/L (0-10)
[2024-12-04 21:59] LABS: Troponin 5 6HR Delta -5.95 ng/L (0-12)
[2024-12-05] VITALS (7 sets, daily range): BP systolic 143–179; BP diastolic 60–91; PULSE 83–106; RESP 16–23; TEMP 36.4–37; O2SAT 92–97
[2024-12-05 05:32] LABS: Estmated Average Glucose 128; Hemoglobin A1C 6.1 % (4.0-6.0)
[2024-12-05 05:37] LABS: Anion Gap 18.7 (5-19); Blood Urea Nitrogen 22 mg/dL (6-20); Calcium 10.2 mg/dL (8.5-10.5); Carbon Dioxide 26 mmol/L (22-29); Chloride 94 mmol/L (98-107); Creatinine Clr Calc Pharmacy 83.1245; Glomerular Filtration Rate 74.2 mL/min (90-130); Glucose 246 mg/dL (65-115); Magnesium 1.7 mg/dL (1.7-2.3); Osmolality Calculated 292 mOsm/kg (285-295); Potassium 3.7 mmol/L (3.5-5.1); Sodium 135 mmol/L (136-145); Thyroid Stimulating Hormone 0.82 uIU/mL (0.27-4.20)
[2024-12-05 05:38] LABS: Chol HDL Ratio 2.93 mg/dL (0.0-4.40); Cholesterol 255 mg/dL (0-200); HDL Cholesterol 87 mg/dL (60-100); LDL Cholesterol Calculated 147 mg/dL (50-129); LDL HDL Ratio 1.69 RATIO (0.00-3.22); Triglycerides 107 mg/dL (0-150)
[2024-12-05] MEDS: FUROsemide 10 mg/mL SDV 4mL 40 MG IVP ×3 (05:43→17:38)
[2024-12-05] MEDS: potassium chloride ER 20 mEq Tablet 40 MEQ PO ×2 (08:51→17:37)
[2024-12-05] MEDS: pantoprazole DR 40 mg Tablet PO (08:51)
[2024-12-05] MEDS: hyDRALAzine 50 mg Tablet PO ×3 (08:52→20:35)
[2024-12-05] MEDS: isosorbide mononitrate ER 30 mg Tablet PO (08:52)
--- NOTE | 2024-12-05 08:58 | PC.NURSE ---
patient is requesting hydrochloriquin for her lupus. Dr Mullins notified.
--- NOTE | 2024-12-05 10:35 | PC.CHAP ---
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 machinist visit [] Patient/Family/Request visit [] Outpatient visit [] Follow-up visit [] Physician referral [] Code/Alert [x] Routine visit [] Staff referral [] Actively dying [] Patient sleeping [] Family support [] [] Out of room [] Palliative care [] [] Receiving care in room [] Pre-surgical visit [] Trauma [] Long length of stay [] ICU visit [] Other: Relational/Emotional Strength [x] Patient feels connected with others/family/visitors/staff [] Distress [] Loneliness/isolation [] Abandonment Spirituality of Patient [x] Person of Noemi [] Attends Orthodox of their Noemi [x] Believes in Prayer [] Reads Bible or Scientology materials [] There are Spiritual issues to be addressed Power 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 Interventions [x] Prayer [x] Active listening [] Non-anxious presence [x] Spiritual/emotional support [] Crisis/trauma care [] Spiritual counseling [] Bereavement support [] Provided bereavement packet [] Provided Bible/devotional materials [] Provided toy/stuffed animal, coloring book to patient or family member [] Provided Communion [] Anointing/[place] [] Salvation [x] Completed spiritual assessment [] Other: Impact on Illness or Injury [] Angry [] Fearful [] Anxious [] Often cries [] Exhaustion [] Unable to work [] Unable to attend restoration [] Unable to walk/stand [] Unable to read [] Unable to drive [] Unable to eat/drink [] Unable to sleep [] Unable to be with family [] Patient intubated [] Other: Summary Time spent with patient 5 min
[2024-12-05] MEDS: acetaminophen 325 mg Tablet 650 MG PO (11:39)
[2024-12-05] MEDS: lanolin oint 7 gm 1 APPLIC TOPICAL (11:59)
--- NOTE | 2024-12-05 13:23 | P.PN_ITS ---
Subjective 2 Subjective: She has been having peripheral edema and orthopnea. She does not use oxygen at baseline she is currently on 2 L/min O2. She also reports chest pressure. She recently quit smoking. Vitals/I&O/Wt Last Vital Signs Temp 97.7 F 12/05/24 11:35 Pulse 86 12/05/24 11:35 Resp 16 12/05/24 11:35 BP 174/69 12/05/24 11:35 Pulse Ox 94 12/05/24 11:35 O2 Del Method Nasal Cannula 12/05/24 11:35 O2 Flow Rate 3 12/04/24 17:15 12/04/24 12/05/24 12/05/24 22:59 06:59 14:59 Intake Total 400 / 400 120 / 520 720 / 720 Output Total 240 / 240 Balance 400 / 400 -120 / 280 720 / 720 Weight last 48 hrs Weight 82.146 kg Weight 84.907 kg Weight 83.007 kg Physical Exam 2 Const: COMMON NORMALS: no acute distress and patient oriented x3 HENMT: COMMON NORMALS: normocephalic and atraumatic HEAD & SCALP: n ormocephalic and atraumatic Eye: COMMON NORMALS: Equal, round and reactive pupils present and EOMs intact bilaterally PUPIL: Yes Equal, round and reactive pupils present Neck/C-Spine: COMMON NORMALS: supple and no JVD Chest: COMMONS NORMALS: normal inspection of the chest and normal palpation of entire chest wall Resp: COMMON NORMALS: normal respiratory effort AUSCULTATION: crackles Cardio: COMMON NORMALS: no JVD, regular rate, regular rhythm and No murmurs present (Cardio) RATE: regular rate RHYTHM: regular rhythm GI: COMMON NORMALS: Normal to inspection, nondistended, normoactive bowel sounds present : COMMON NORMALS: Yes no CVA tenderness BLADDER/KIDNEY EXAM: Yes no CVA tenderness Back/Pelvis: COMMON NORMALS: no CVA tenderness Extremity: COMMON NORMALS: normal to inspection GENERAL: Yes edema (Trace edema) Neuro: COMMON NORMALS: patient oriented x3 Skin: COMMON NORMALS: no rashes or lesions noted GENERAL SKIN EXAM: no rashes or lesions noted Data 12/04/24 15:00 12/05/24 04:08 Micro: Microbiology 12/04/24 15:55 Blood Culture - Preliminary Blood SPECIMEN COLLECTED 12/04/24 16:00 Blood Culture - Preliminary Blood SPECIMEN COLLECTED A&P Assessment and plan (1) New onset of congestive heart failure: LVEF 60% with mild hypokinesis of the basal inferior lateral segment. Grade II/IV diastolic dysfunction. Continue IV Lasix twice daily I suspect she has CAD and would benefit from ischemic workup Cardiology consulted Telemetry monitoring Monitor I's and O's and daily weights (2) Pulmonary edema: As above (3) Acute respiratory failure with hypoxia: Currently on 3 L nasal cannula titrate as indicated (4) Tobacco use: Patient reports she is trying to quit and down to 2 cigarettes a day. She requests no patch. I encouraged her to quit. (5) GERD (gastroesophageal reflux disease): Continue omeprazole (6) Benign essential hypertension: Continue home meds PDMP PDMP Reviewed: Not Reviewed Attestations 2 Medical Necessity Statement*: Patient requires continued hospitalization for new onset CHF. Lexiscan ordered for tomorrow. Time Spent in Patient Care: 50 minutes Coding Level of Care Code 49851 Diagnoses New onset of congestive heart failure I50.9 Pulmonary edema J81.1 Acute respiratory failure with hypoxia J96.01 Tobacco use Z72.0 GERD (gastroesophageal reflux disease) K21.9 Benign essential hypertension I10
--- NOTE | 2024-12-05 16:47 | PM.CONSULT ---
Providers/Reason For Consult Consulting Physician/Specialty*: MAMI Don MD/cardiology Reason for Consult*: Patient with a new onset heart failure Requesting Physician: Dr. Mullins Attending Physician: Eda Mullins MD Primary Care Provider: Roberto Carlos Carrera History of Present Illness History of Present Illness Arlen Santo is a 54 year old female with a history of hypertension, COPD, rheumatoid arthritis, systemic lupus erythematosus, is admitted to the hospital through the emergency room, where she present with complaints of progressive shortness of breath. She was found to have features of congestive heart failure. Cardiology consult is requested for further cardiac evaluation and recommendations. This patient has no previous history for any cardiac illness. For the last 2 months, she been having shortness of breath with activities. She self diagnosed the condition as heart failure and started taking some water pill left from her late . Apparently this was helping her symptoms. She has been taking the Lasix on a as needed basis. But then she ran out of this ,a couple of weeks ago. So her shortness of breath started getting worse and for that reason, she has decided to come to the hospital. She has no chest pain or chest tightness. No significant palpitations, dizziness or syncopal episodes. Has not had any fever, chills or significant cough. She has a history of smoking abuse and reactive airway disease. She been using inhalers in the past. Her inhalers were not helping the shortness of breath at this time. She started taking medication for the blood pressure 4 years ago. Also started taking treatment for rheumatoid arthritis/lupus 4 years ago. She is being followed by a barge captain in [place]. She has no history for any diabetes, dyslipidemia, peripheral artery disease, kidney disease, liver disease or bleeding disorders. No history for any CVA. She smokes a pack a day for the last 50 years or so. She also used to drink heavily but quit for 5 years ago. No other substance abuse. Her mother is known to have congestive heart failure. Maternal grandmother also had congestive heart failure and had a permanent pacemaker plantation. No other relevant family history. Review of Systems Narrative: CONSTITUTIONAL: No fever or chills. EYES: No blurring of vision or other visual disturbances lately. ENT: No hoarseness of voice, auditory disturbances or sore throat. CARDIOVASCULAR: As mentioned above. RESPIRATORY: As mentioned above GASTROINTESTINAL: No hematemesis or melena. GENITOURINARY: No dysuria or hematuria. INTEGUMENTARY: No skin rashes or history of skin cancer. NEURO: No transient ischemic attacks or amaurosis. PSYCHIATRIC: No history of psychosis or major depression. HEMATOLOGIC: No bleeding disorders or significant anemia. ENDOCRINE: No history of polyuria or polydipsia. MUSCULOSKELETAL: Rheumatoid arthritis/lupus/fibromyalgia ALLERGY/IMMUNOLOGY: As mentioned above. Medications/Allergies Home Medications ?Medication ?Instructions ?Recorded ?Confirmed ?Last Taken ?Type losartan 100 mg tablet 100 mg PO DAILY 30 days #30 tabs 09/14/21 12/04/24 12/04/24 Rx albuterol sulfate 2.5 mg/3 mL 2.5 mg inhalation Q4H PRN 12/04/24 12/04/24 Unknown History (0.083 %) solution for nebulization Shortness Of Breath amitriptyline 25 mg tablet 25 mg PO BEDTIME 12/04/24 12/04/24 12/03/24 History buspirone 5 mg tablet 5 mg PO Q12H PRN Anxiety 12/04/24 12/04/24 Unknown History cefdinir 300 mg capsule 300 mg PO BID 12/04/24 12/04/24 12/04/24 08:00 History cholecalciferol (vitamin D3) 125 125 mcg PO DAILY 12/04/24 12/04/24 12/04/24 History mcg (5,000 unit) tablet (Vitamin D3) duloxetine 60 mg capsule,delayed 60 mg PO DAILY 12/04/24 12/04/24 12/04/24 History release fluticasone 250 mcg-salmeterol 50 2 inh inhalation BID 12/04/24 12/04/24 12/04/24 History mcg/dose blistr powdr for inhalation (Advair Diskus) hydrochlorothiazide 12.5 mg capsule 12.5 mg PO DAILY 12/04/24 12/04/24 12/04/24 History hydroxychloroquine 200 mg tablet 200 mg PO BID 12/04/24 12/04/24 Unknown History ibuprofen 800 mg tablet 800 mg PO Q6H PRN Pain, Moderate 12/04/24 12/04/24 Unknown History metoprolol succinate 200 mg 200 mg PO DAILY 12/04/24 12/04/24 12/04/24 History tablet,extended release 24 hr omeprazole 20 mg capsule,delayed 20 mg PO DAILY 12/04/24 12/04/24 12/04/24 History release prednisone 5 mg tablet 5 mg PO DAILY 12/04/24 12/04/24 12/04/24 History tizanidine 2 mg tablet 20 mg PO BEDTIME 12/04/24 12/04/24 12/03/24 History Allergies Allergy/AdvReac Type Severity Reaction Status Date / Time lisinopril Allergy Intermediate rash Verified 08/10/24 09:34 leflunomide Allergy hives Verified 08/10/24 09:34 Penicillins Allergy unknown Verified 08/10/24 09:34 Current Medications Generic Name Dose Route Start Last Admin Trade Name Freq PRN Reason Stop Dose Admin Acetaminophen 650 mg 12/04/24 18:11 12/05/24 11:39 Acetaminophen 325 Mg Tablet PO 650 mg Q6H PRN Administration Mild/Mod Pain Or Temp >/= 101 Enoxaparin Sodium 40 mg 12/04/24 18:30 12/04/24 18:33 Enoxaparin 40 Mg/0.4 Ml Syringe SUBCUT 40 mg Q24H CONOR Administration Hydralazine HCl 50 mg 12/04/24 21:00 12/05/24 15:18 Hydralazine 50 Mg Tablet PO 50 mg TID CONOR Administration Isosorbide Mononitrate 30 mg 12/05/24 09:00 12/05/24 08:52 Isosorbide Mononitrate Er 30 Mg Tablet PO 30 mg DAILY CONOR Administration Lanolin 1 applic 12/05/24 11:45 12/05/24 11:59 Lanolin Oint 7 Gm TOPICAL 1 applic PRN PRN Administration DRYNESS Pantoprazole Sodium 40 mg 12/05/24 09:00 12/05/24 08:[address] 40 Mg Tablet PO 40 mg DAILY CONOR Administration Potassium Chloride 40 meq 12/04/24 18:11 12/05/24 08:51 Potassium Chloride Er 20 Meq Tablet PO 40 meq BID CONOR Administration PFSH Acute PFSH: Medical History Immunization counseling High risk medication use Seropositive rheumatoid arthritis of multiple sites Celebrex caused rash. Alcohol abuse SS-A antibody positive Immunization counseling High risk medication use Subacute cutaneous lupus erythematosus GERD (gastroesophageal reflux disease) Anxiety Benign essential hypertension COPD (chronic obstructive pulmonary disease) TOOTIE (generalized anxiety disorder) Lichenoid actinic keratosis Asymptomatic hypertensive urgency Surgical History H/O section Family History Other CAD (coronary artery disease) Cancer Diabetes Denies family history of Rheumatoid arthritis Chronic kidney disease (CKD) Systemic lupus erythematosus (SLE) in adult Hypertension Stroke Social History Smoking and tobacco/nicotine status: unknown if used tobacco/nicotine Quit status (tobacco/nicotine): not considering quitting Alcohol intake: current Alcohol intake frequency: 0-2 Drinks per Day Substance/Drug Use: never Female Reproductive History: Spontaneous abortions: No Vitals/I&O/Wt Last Vital Signs Temp 98 F 12/05/24 15:39 Pulse 85 12/05/24 15:39 Resp 17 12/05/24 15:39 BP 174/69 12/05/24 11:35 Pulse Ox 97 12/05/24 15:39 O2 Del Method Nasal Cannula 12/05/24 15:39 O2 Flow Rate 3 12/04/24 17:15 12/05/24 12/05/24 12/05/24 06:59 14:59 22:59 Intake Total 120 / 520 720 / 720 Output Total 240 / 240 Balance -120 / 280 720 / 720 Weight last 48 hrs Weight 181 lb 1.6 oz Weight 187 lb 3 oz Weight 183 lb Physical Exam Narrative: GENERAL: The patient is alert and oriented times three. Not in any acute distress. Moderately obese HEENT: No significant pallor, icterus or lymphadenopathy.Oral cavity: There are no mucous membrane lesions. NECK: Trachea appears to be central. No masses noted. No JVD or thyromegaly appreciated. RESPIRATORY: Chest is symmetrical. No intercostals muscle retraction or any accessory muscle activation. There is no chest wall tenderness. Breath sounds are heard bilaterally. Occasional scattered expiratory wheezing . No evidence of any consolidation. BREASTS: Deferred. HEART: The heart sounds are normal. No S3 or S4. No significant murmurs. No pericardial rub ABDOMEN: No vessel pulsations or distention. No tenderness. No organomegaly appreciated. Bowel sounds are normally heard. : Deferred. RECTAL: Deferred. LYMPHATIC: No lymphadenopathy noted in the neck. EXTREMITIES: No edema or cyanosis. No clubbing. The peripheral pulses are palpable in fairly good volume and. Amplitude MUSCULOSKELETAL: No acute joint deformities or swelling SKIN: Port wine birthmark on the chin and also upper part of the chest. Also seems to have some lupus rashes in the upper extremities NEUROPSYCHIATRIC: The patient is alert and oriented x3. Appears to be in a good mood. No tremors or rigidity noted. Data 12/04/24 15:00 12/05/24 04:08 Other Labs: Laboratory Last Values WBC 12.47 10^3/uL (3.29-11.43) H 12/04/24 15:00 RBC 3.95 10^6/uL (3.85-5.65) 12/04/24 15:00 Hgb 13.90 g/dL (11.27-16.99) 12/04/24 15:00 Hct 40.8 % (36-47) 12/04/24 15:00 MCV 103.3 fl (85-98) H 12/04/24 15:00 MCH 35.2 pg (27-33) H 12/04/24 15:00 MCHC 34.1 g/dL (30-55) 12/04/24 15:00 RDW 16.7 % (12.1-15.1) H 12/04/24 15:00 Plt Count 226 10^3/cmm (157-399) 12/04/24 15:00 MPV 9.1 fL (7.4-10.4) 12/04/24 15:00 Neut % (Auto) 83.6 % 12/04/24 15:00 Lymph % (Auto) 9.3 % 12/04/24 15:00 [place] % (Auto) 5.3 % 12/04/24 15:00 Eos % (Auto) 0.6 % 12/04/24 15:00 Baso % (Auto) 0.4 % 12/04/24 15:00 Neut # (Auto) 10.42 10^3/uL (1.8-7.7) H 12/04/24 15:00 Lymph # (Auto) 1.2 10^3/uL (0.8-4.8) 12/04/24 15:00 [place] # (Auto) 0.7 10^3/uL (0.2-0.9) 12/04/24 15:00 Eos # (Auto) 0.1 10^3/uL (0.0-0.8) 12/04/24 15:00 Baso # (Auto) 0.1 10^3/uL (0.0-0.1) 12/04/24 15:00 Nucleated RBC % (auto) 0 % 12/04/24 15:00 Nucleated RBCs # 0.0 /100WBC 12/04/24 15:00 PT 13.00 SECONDS (12.1-14.9) 12/04/24 15:00 INR 0.91 (0.8-1.2) 12/04/24 15:00 Specimen Type Arterial 12/04/24 15:43 Sample Site Radial, left 12/04/24 15:43 ABG pH 7.43 (7.35-7.45) 12/04/24 15:43 ABG pCO2 43.6 mmHg (35-45) 12/04/24 15:43 ABG pO2 81.4 mmHg (80.0-100.0) 12/04/24 15:43 ABG HCO3 28.7 mmol/L (22-26) H 12/04/24 15:43 ABG Base Excess 3.7 mmol/L (-2.0-2.0) H 12/04/24 15:43 Chandana Test Pos 12/04/24 15:43 Hematocrit 43.6 % (37-47) 12/04/24 15:43 Hgb O2 Saturation 93.1 % (95-100) L 12/04/24 15:43 Carboxyhemoglobin 3.2 %THgb (0.4-20.1) 12/04/24 15:43 Methemoglobin 0.2 % (0.4-1.5) L 12/04/24 15:43 Total Hemoglobin 14.2 g/dL (12-16) 12/04/24 15:43 O2 Delivery Device Nc 12/04/24 15:43 O2 Liters/Min 4.0 % 12/04/24 15:43 Fingerprint Clerk ID Lunaci 12/04/24 15:43 Sodium 135 mmol/L (136-145) L 12/05/24 04:08 Potassium 3.7 mmol/L (3.5-5.1) 12/05/24 04:08 Chloride 94 mmol/L (98-107) L 12/05/24 04:08 Carbon Dioxide 26 mmol/L (22-29) 12/05/24 04:08 Anion Gap 18.7 (5-19) 12/05/24 04:08 BUN 22 mg/dL (6-20) H 12/05/24 04:08 Creatinine 0.8 mg/dL (0.5-0.9) 12/05/24 04:08 GFR Calculation 74.2 mL/min (90-130) L 12/05/24 04:08 Glucose 246 mg/dL (65-115) H 12/05/24 04:08 Estimat Average Glucose 128 12/05/24 04:08 Hemoglobin A1c 6.1 % (4.0-6.0) H 12/05/24 04:08 Calculated Osmolality 292 mOsm/kg (285-295) 12/05/24 04:08 Calcium 10.2 mg/dL (8.5-10.5) 12/05/24 04:08 Magnesium 1.7 mg/dL (1.7-2.3) 12/05/24 04:08 Total Bilirubin 0.4 mg/dL (0.15-1.2) 12/04/24 15:00 AST 51 U/L (0-32) H 12/04/24 15:00 ALT 33 U/L (0-33) 12/04/24 15:00 Alkaline Phosphatase 114 U/L (35-105) H 12/04/24 15:00 Troponin T Baseline 39 ng/L (0-10) H 12/04/24 15:00 Troponin T 120 Minute 39.81 ng/L (0-10) H 12/04/24 16:57 Delta Troponin T 0.81 ABS# (0-10) 12/04/24 16:57 Troponin T Hi Sens 6Hr 33.05 ng/L (0-10) H 12/04/24 20:58 Troponin T Hi Sens 6Hr Delta -5.95 ng/L (0-12) L 12/04/24 20:58 NT-Pro-B Natriuret Pep 2667 pg/mL (0-125) H 12/04/24 15:00 Total Protein 6.2 g/dL (6.6-8.7) L 12/04/24 15:00 Albumin 3.9 g/dL (3.5-5.2) 12/04/24 15:00 Globulin 2.3 g/dL (1.3-4.6) 12/04/24 15:00 Triglycerides 107 mg/dL (0-150) 12/05/24 04:08 Cholesterol 255 mg/dL (0-200) H 12/05/24 04:08 LDL Cholesterol, Calc 147 mg/dL (50-129) H 12/05/24 04:08 HDL Cholesterol 87 mg/dL (60-100) 12/05/24 04:08 LDL/HDL Ratio 1.69 RATIO (0.00-3.22) 12/05/24 04:08 Cholesterol/HDL Ratio 2.93 mg/dL (0.0-4.40) 12/05/24 04:08 TSH 0.82 uIU/mL (0.27-4.20) 12/05/24 04:08 Influenza A (PCR) Negative (Negative) 12/04/24 15:10 Influenza Type B (PCR) Negative (Negative) 12/04/24 15:10 RSV (PCR) Negative (Negative) 12/04/24 15:10 SARS-CoV-2 (PCR) Negative (Negative) 12/04/24 15:10 Micro: Microbiology 12/04/24 16:00 Blood Culture - Preliminary Blood NEGATIVE TO DATE 12/04/24 15:55 Blood Culture - Preliminary Blood NEGATIVE TO DATE Other data: The EKG from today revealed Normal sinus rhythm with features of old septal WI. Diffuse ST-T changes in the anterolateral and inferior leads. Nonspecific IVCD. The echocardiogram from yesterday revealed Moderate left ventricular hypertrophy. Normal left ventricular size and systolic function, EF 60%. Mild hypokinesia of the basal inferolateral segment.Grade II/IV diastolic dysfunction, moderately elevated filling pressures. Mildly increased left atrial size. Mild to moderate aortic valve regurgitation. Thickened aortic valve. There is no pericardial effusion. There are no intracardiac masses. No similar previous studies are available for comparison A&P Assessment and plan (1) New onset of congestive heart failure: The etiology of the heart failure is not clear at this time. Hypertensive heart disease, coronary ischemia, COPD exacerbation, etc. are considerations. Patient seems to be responding to the IV Lasix. This may be continued. (2) Benign essential hypertension: Antihypertensive medications need to be optimized. The blood pressure seems to be getting under control. (3) Seropositive rheumatoid arthritis of multiple sites: May continue on the current management. (4) Subacute cutaneous lupus erythematosus: Continue on the current management as per rheumatology. (5) Acute respiratory failure with hypoxia: Most likely from the COPD exacerbation/congestive heart failure. The respiratory status seems to be improving. (6) Tobacco use: Patient is strongly advised to quit smoking. She seems to understand implications. Plan To further evaluate the patient is a cardiac status, a Myocardial perfusion imaging would be appropriate. If the respiratory status is stable, may go ahead and do an exercise/sestamibi/sestamibi stress test tomorrow. Based on the results, further recommendations will be made. May be continued on the Lasix and other symptomatic measures for the time being. Thank you for the opportunity to evaluate this patient and make these recommendations PDMP PDMP Reviewed: Not Reviewed Coding Level of Care Code 67905 Diagnoses New onset of congestive heart failure I50.9 Benign essential hypertension I10 Seropositive rheumatoid arthritis of multiple sites M05.79 Subacute cutaneous lupus erythematosus L93.1 Acute respiratory failure with hypoxia J96.01 Tobacco use Z72.0
[2024-12-05] MEDS: enoxaparin 40 mg/0.4 mL Syringe SUBCUT (17:36)
[2024-12-05] MEDS: hydroxychloroquine 200 mg Tablet PO (17:36)
[2024-12-06] VITALS (13 sets, daily range): BP systolic 136–166; BP diastolic 69–105; PULSE 67–113; RESP 14–24; TEMP 36.1–37; O2SAT 92–97
[2024-12-06 05:32] LABS: Anion Gap 19.4 (5-19); Blood Urea Nitrogen 30 mg/dL (6-20); Calcium 9.9 mg/dL (8.5-10.5); Carbon Dioxide 27 mmol/L (22-29); Chloride 96 mmol/L (98-107); Creatinine Clr Calc Pharmacy 74.3481; Glomerular Filtration Rate 64.8 mL/min (90-130); Glucose 128 mg/dL (65-115); Osmolality Calculated 296 mOsm/kg (285-295); Potassium 3.4 mmol/L (3.5-5.1); Sodium 139 mmol/L (136-145)
[2024-12-06] MEDS: FUROsemide 10 mg/mL SDV 4mL 40 MG IVP ×2 (06:02→16:03)
[2024-12-06] MEDS: regadenoson 0.4 Mg/5 ml Syringe IVP (07:34)
--- NOTE | 2024-12-06 09:05 | P.PN_ITS ---
Subjective 2 Subjective: The patient is feeling better. She was found to have small to moderate area of ischemia in the distribution of the circumflex artery based on the perfusion scan. No fever or chills. No cough. No other specific complaints. Medications: Medication Review Details: Current Medications Acetaminophen (Acetaminophen 325 Mg Tablet) 650 mg PO Q6H PRN PRN Reason: Mild/Mod Pain Or Temp >/= 101 Last Admin: 12/05/24 11:39 Dose: 650 mg Albuterol Sulfate (Albuterol 2.5 Mg/3 Ml Neb) 2.5 mg INHALATION QID.RESPIRATORY CONOR Albuterol/Ipratropium (Ipratropium-Albuterol 3 Ml Neb) 3 ml INHALATION Q6H.RESP CONOR Aminophylline (Aminophylline 25 Mg/Ml Sdv 20 Ml) 25 mg IVP Q2M PRN PRN Reason: see dose instructions Stop: 12/07/24 06:06 Amitriptyline HCl (Amitriptyline 25 Mg Tablet) 25 mg PO BEDTIME [facility] Budesonide (Budesonide 0.5 Mg/2 Ml Neb) 0.5 mg INHALATION BID.RESPIRATORY CONOR Buspirone HCl (Buspirone 10 Mg Tablet) 5 mg PO Q12H PRN PRN Reason: Anxiety Calcium Carbonate (Calcium Carbonate 500 Mg Chew Tablet) 1,000 mg PO Q4H PRN PRN Reason: DYSPEPSI Duloxetine HCl (Duloxetine 60 Mg Capsule) 60 mg PO DAILY [facility] Enoxaparin Sodium (Enoxaparin 40 Mg/0.4 Ml Syringe) 40 mg SUBCUT Q24H [facility] Last Admin: 12/05/24 17:36 Dose: 40 mg Furosemide (Furosemide 10 Mg/Ml Sdv 4ml) 40 mg IVP BIDAC [facility] Last Admin: 12/06/24 06:02 Dose: 40 mg Hydralazine HCl (Hydralazine 50 Mg Tablet) 50 mg PO TID [facility] Last Admin: 12/05/24 20:35 Dose: 50 mg Hydrochlorothiazide (Hydrochlorothiazide 25 Mg Tablet) 12.5 mg PO DAILY [facility] Hydroxychloroquine Sulfate (Hydroxychloroquine 200 Mg Tablet) 200 mg PO BID [facility] Last Admin: 12/05/24 17:36 Dose: 200 mg Isosorbide Mononitrate (Isosorbide Mononitrate Er 30 Mg Tablet) 30 mg PO DAILY [facility] Last Admin: 12/05/24 08:52 Dose: 30 mg Lanolin (Lanolin Oint 7 Gm) 1 applic TOPICAL PRN PRN PRN Reason: DRYNESS Last Admin: 12/05/24 11:59 Dose: 1 applic Losartan Potassium (Losartan 50 Mg Tablet) 100 mg PO DAILY [facility] Methylprednisolone Sodium Succinate (Methylprednisolone Sod Succ 40 Mg/Ml Inj) 40 mg IV BID@08,16 [facility] Metoprolol Succinate (Metoprolol Succinate Er (24 Hr) 100 Mg Tablet) 200 mg PO DAILY [facility] Nitroglycerin (Nitroglycerin 0.4 Mg Sublingual Tablet) 0.4 mg SUBLINGUAL Q5M PRN PRN Reason: CHEST PAIN Stop: 12/07/24 06:06 Ondansetron HCl (Ondansetron 2 Mg/Ml Sdv 2 Ml) 4 mg IVP Q8H PRN PRN Reason: vomiting, or N/V if npo Ondansetron HCl (Ondansetron 2 Mg/Ml Sdv 2 Ml) 4 mg IVP Q2M PRN PRN Reason: NAUSEA Pantoprazole Sodium (Pantoprazole Dr 40 Mg Tablet) 40 mg PO DAILY [facility] Last Admin: 12/05/24 08:51 Dose: 40 mg Potassium Chloride (Potassium Chloride Er 20 Meq Tablet) 40 meq PO BID [facility] Last Admin: 12/05/24 17:37 Dose: 40 meq Tizanidine HCl (Tizanidine 4 Mg Tablet) 2 mg PO BEDTIME [facility] Vitamin D (Cholecalciferol (Vitamin D3) 5,000 Unit Tablet) 5,000 unit PO DAILY [facility] Vitals/I&O/Wt Last Vital Signs Temp 97.0 F L 12/06/24 08:00 Pulse 113 H 12/06/24 08:00 Resp 20 H 12/06/24 08:00 BP 147/105 12/06/24 08:00 Pulse Ox 96 12/06/24 08:00 O2 Del Method Room Air 12/06/24 08:00 O2 Flow Rate 3 12/04/24 17:15 12/05/24 12/06/24 12/06/24 22:59 06:59 14:59 Intake Total 720 / 1440 0 / 1440 Output Total 0 / 0 Balance 720 / 1440 0 / 1440 Weight last 48 hrs Weight 183 lb 6.4 oz Weight 181 lb 1.6 oz Weight 187 lb 3 oz Weight 183 lb Physical Exam 2 Narrative: GENERAL: The patient is alert and oriented times three. Not in any acute distress. Moderately obese HEENT: No significant pallor, icterus or lymphadenopathy.Oral cavity: There are no mucous membrane lesions. NECK: Trachea appears to be central. No masses noted. No JVD or thyromegaly appreciated. RESPIRATORY: Chest is symmetrical. No intercostals muscle retraction or any accessory muscle activation. There is no chest wall tenderness. Breath sounds are heard bilaterally. Occasional scattered expiratory wheezing . No evidence of any consolidation. BREASTS: Deferred. HEART: The heart sounds are normal. No S3 or S4. No significant murmurs. No pericardial rub ABDOMEN: No vessel pulsations or distention. No tenderness. No organomegaly appreciated. Bowel sounds are normally heard. : Deferred. RECTAL: Deferred. LYMPHATIC: No lymphadenopathy noted in the neck. EXTREMITIES: No edema or cyanosis. No clubbing. The peripheral pulses are palpable in fairly good volume and. Amplitude MUSCULOSKELETAL: No acute joint deformities or swelling SKIN: Port wine birthmark on the chin and also upper part of the chest. Also seems to have some lupus rashes in the upper extremities NEUROPSYCHIATRIC: The patient is alert and oriented x3. Appears to be in a good mood. No tremors or rigidity noted. Data 12/04/24 15:00 12/06/24 04:47 Other Labs: Laboratory Last Values WBC 12.47 10^3/uL (3.29-11.43) H 12/04/24 15:00 RBC 3.95 10^6/uL (3.85-5.65) 12/04/24 15:00 Hgb 13.90 g/dL (11.27-16.99) 12/04/24 15:00 Hct 40.8 % (36-47) 12/04/24 15:00 MCV 103.3 fl (85-98) H 12/04/24 15:00 MCH 35.2 pg (27-33) H 12/04/24 15:00 MCHC 34.1 g/dL (30-55) 12/04/24 15:00 RDW 16.7 % (12.1-15.1) H 12/04/24 15:00 Plt Count 226 10^3/cmm (157-399) 12/04/24 15:00 MPV 9.1 fL (7.4-10.4) 12/04/24 15:00 Neut % (Auto) 83.6 % 12/04/24 15:00 Lymph % (Auto) 9.3 % 12/04/24 15:00 Saunders % (Auto) 5.3 % 12/04/24 15:00 Eos % (Auto) 0.6 % 12/04/24 15:00 Baso % (Auto) 0.4 % 12/04/24 15:00 Neut # (Auto) 10.42 10^3/uL (1.8-7.7) H 12/04/24 15:00 Lymph # (Auto) 1.2 10^3/uL (0.8-4.8) 12/04/24 15:00 Saunders # (Auto) 0.7 10^3/uL (0.2-0.9) 12/04/24 15:00 Eos # (Auto) 0.1 10^3/uL (0.0-0.8) 12/04/24 15:00 Baso # (Auto) 0.1 10^3/uL (0.0-0.1) 12/04/24 15:00 Nucleated RBC % (auto) 0 % 12/04/24 15:00 Nucleated RBCs # 0.0 /100WBC 12/04/24 15:00 PT 13.00 SECONDS (12.1-14.9) 12/04/24 15:00 INR 0.91 (0.8-1.2) 12/04/24 15:00 Specimen Type Arterial 12/04/24 15:43 Sample Site Radial, left 12/04/24 15:43 ABG pH 7.43 (7.35-7.45) 12/04/24 15:43 ABG pCO2 43.6 mmHg (35-45) 12/04/24 15:43 ABG pO2 81.4 mmHg (80.0-100.0) 12/04/24 15:43 ABG HCO3 28.7 mmol/L (22-26) H 12/04/24 15:43 ABG Base Excess 3.7 mmol/L (-2.0-2.0) H 12/04/24 15:43 Chandana Test Pos 12/04/24 15:43 Hematocrit 43.6 % (37-47) 12/04/24 15:43 Hgb O2 Saturation 93.1 % (95-100) L 12/04/24 15:43 Carboxyhemoglobin 3.2 %THgb (0.4-20.1) 12/04/24 15:43 Methemoglobin 0.2 % (0.4-1.5) L 12/04/24 15:43 Total Hemoglobin 14.2 g/dL (12-16) 12/04/24 15:43 O2 Delivery Device Nc 12/04/24 15:43 O2 Liters/Min 4.0 % 12/04/24 15:43 Beamster ID Darren 12/04/24 15:43 Sodium 139 mmol/L (136-145) 12/06/24 04:47 Potassium 3.4 mmol/L (3.5-5.1) L 12/06/24 04:47 Chloride 96 mmol/L (98-107) L 12/06/24 04:47 Carbon Dioxide 27 mmol/L (22-29) 12/06/24 04:47 Anion Gap 19.4 (5-19) H 12/06/24 04:47 BUN 30 mg/dL (6-20) H 12/06/24 04:47 Creatinine 0.9 mg/dL (0.5-0.9) 12/06/24 04:47 GFR Calculation 64.8 mL/min (90-130) L 12/06/24 04:47 Glucose 128 mg/dL (65-115) H 12/06/24 04:47 Estimat Average Glucose 128 12/05/24 04:08 Hemoglobin A1c 6.1 % (4.0-6.0) H 12/05/24 04:08 Calculated Osmolality 296 mOsm/kg (285-295) H 12/06/24 04:47 Calcium 9.9 mg/dL (8.5-10.5) 12/06/24 04:47 Magnesium 1.7 mg/dL (1.7-2.3) 12/05/24 04:08 Total Bilirubin 0.4 mg/dL (0.15-1.2) 12/04/24 15:00 AST 51 U/L (0-32) H 12/04/24 15:00 ALT 33 U/L (0-33) 12/04/24 15:00 Alkaline Phosphatase 114 U/L (35-105) H 12/04/24 15:00 Troponin T Baseline 39 ng/L (0-10) H 12/04/24 15:00 Troponin T 120 Minute 39.81 ng/L (0-10) H 12/04/24 16:57 Delta Troponin T 0.81 ABS# (0-10) 12/04/24 16:57 Troponin T Hi Sens 6Hr 33.05 ng/L (0-10) H 12/04/24 20:58 Troponin T Hi Sens 6Hr Delta -5.95 ng/L (0-12) L 12/04/24 20:58 NT-Pro-B Natriuret Pep 2667 pg/mL (0-125) H 12/04/24 15:00 Total Protein 6.2 g/dL (6.6-8.7) L 12/04/24 15:00 Albumin 3.9 g/dL (3.5-5.2) 12/04/24 15:00 Globulin 2.3 g/dL (1.3-4.6) 12/04/24 15:00 Triglycerides 107 mg/dL (0-150) 12/05/24 04:08 Cholesterol 255 mg/dL (0-200) H 12/05/24 04:08 LDL Cholesterol, Calc 147 mg/dL (50-129) H 12/05/24 04:08 HDL Cholesterol 87 mg/dL (60-100) 12/05/24 04:08 LDL/HDL Ratio 1.69 RATIO (0.00-3.22) 12/05/24 04:08 Cholesterol/HDL Ratio 2.93 mg/dL (0.0-4.40) 12/05/24 04:08 TSH 0.82 uIU/mL (0.27-4.20) 12/05/24 04:08 Influenza A (PCR) Negative (Negative) 12/04/24 15:10 Influenza Type B (PCR) Negative (Negative) 12/04/24 15:10 RSV (PCR) Negative (Negative) 12/04/24 15:10 SARS-CoV-2 (PCR) Negative (Negative) 12/04/24 15:10 Micro: Microbiology 12/04/24 16:00 Blood Culture - Preliminary Blood NEGATIVE TO DATE 12/04/24 15:55 Blood Culture - Preliminary Blood NEGATIVE TO DATE A&P Assessment and plan (1) New onset of congestive heart failure: The etiology of the heart failure is not clear at this time. Hypertensive heart disease, coronary ischemia, COPD exacerbation, etc. are considerations. Patient seems to be responding to the IV Lasix. This may be continued. In view of the abnormal Myocardial perfusion imaging, chronic ischemia causing this is a strong consideration. To further evaluate the coronary status, she requires a cardiac catheterization. (2) Benign essential hypertension: Antihypertensive medications need to be optimized. The blood pressure seems to be getting under control. (3) Seropositive rheumatoid arthritis of multiple sites: May continue on the current management. (4) Subacute cutaneous lupus erythematosus: Continue on the current management as per rheumatology. (5) Acute respiratory failure with hypoxia: Most likely from the COPD exacerbation/congestive heart failure. The respiratory status seems to be improving. (6) Tobacco use: Patient is strongly advised to quit smoking. She seems to understand implications. Plan The results of the Myocardial perfusion imaging and its implications were discussed with the patient in detail. For further evaluation of the coronary status, she requires a cardiac catheterization. Risk and benefits were discussed. The risk of bleeding, hematoma, vascular injury, myocardial infarction, myocardial perforation, malignant cardiac arrhythmias ,CVA, renal failure and other concomitant complications were explained in detail. Patient understood this well and consented to proceed. We may go ahead and do schedule this in the morning. Based on the angiogram findings, further recommendations will be made PDMP PDMP Reviewed: Not Reviewed Attestations 2 Medical Necessity Statement*: Patient requires continued hospital stay for close monitoring and further management Coding Level of Care Code 19078 Diagnoses New onset of congestive heart failure I50.9 Benign essential hypertension I10 Seropositive rheumatoid arthritis of multiple sites M05.79 Subacute cutaneous lupus erythematosus L93.1 Acute respiratory failure with hypoxia J96.01 Tobacco use Z72.0
[2024-12-06] MEDS: potassium chloride ER 20 mEq Tablet 40 MEQ PO ×2 (09:23→16:03)
[2024-12-06] MEDS: hyDRALAzine 50 mg Tablet PO ×3 (09:24→20:45)
[2024-12-06] MEDS: hydroxychloroquine 200 mg Tablet PO ×2 (09:24→16:03)
[2024-12-06] MEDS: cholecalciferol (vitamin D3) 5,000 unit Tablet 5000 UNIT PO (09:24)
[2024-12-06] MEDS: metoprolol succinate ER (24 HR) 100 mg Tablet 200 MG PO (09:24)
[2024-12-06] MEDS: hydroCHLOROthiazide 25 mg Tablet 12.5 MG PO (09:24)
[2024-12-06] MEDS: pantoprazole DR 40 mg Tablet PO (09:25)
[2024-12-06] MEDS: duloxetine 60 mg Capsule PO (09:25)
[2024-12-06] MEDS: isosorbide mononitrate ER 30 mg Tablet PO (09:25)
[2024-12-06] MEDS: losartan 50 mg Tablet 100 MG PO (09:25)
--- NOTE | 2024-12-06 13:14 | P.PN_ITS ---
Subjective 2 Subjective: She was doing well this morning. Her dyspnea has improved. She was saturating well on room air. Her stress test was positive today. Planned for cardiac cath tomorrow. . Vitals/I&O/Wt Last Vital Signs Temp 97.3 F L 12/06/24 11:49 Pulse 80 12/06/24 11:49 Resp 24 H 12/06/24 11:49 BP 140/77 12/06/24 11:49 Pulse Ox 92 12/06/24 11:49 O2 Del Method Room Air 12/06/24 11:49 O2 Flow Rate 3 12/04/24 17:15 12/05/24 12/06/24 12/06/24 22:59 06:59 14:59 Intake Total 720 / 1440 0 / 1440 360 / 360 Output Total 0 / 0 Balance 720 / 1440 0 / 1440 360 / 360 Weight last 48 hrs Weight 83.189 kg Weight 82.146 kg Weight 84.907 kg Weight 83.007 kg Physical Exam 2 Const: COMMON NORMALS: no acute distress and patient oriented x3 HENMT: COMMON NORMALS: normocephalic and atraumatic HEAD & SCALP: n ormocephalic and atraumatic Eye: COMMON NORMALS: Equal, round and reactive pupils present and EOMs intact bilaterally PUPIL: Yes Equal, round and reactive pupils present Neck/C-Spine: COMMON NORMALS: supple and no JVD Chest: COMMONS NORMALS: normal inspection of the chest and normal palpation of entire chest wall Resp: COMMON NORMALS: normal respiratory effort and clear to auscultation bilaterally AUSCULTATION: clear to auscultation bilaterally Cardio: COMMON NORMALS: no JVD, regular rate, regular rhythm and No murmurs present (Cardio) RATE: regular rate RHYTHM: regular rhythm GI: COMMON NORMALS: Normal to inspection, nondistended, normoactive bowel sounds present : COMMON NORMALS: Yes no CVA tenderness BLADDER/KIDNEY EXAM: Yes no CVA tenderness Back/Pelvis: COMMON NORMALS: no CVA tenderness Extremity: COMMON NORMALS: normal to inspection GENERAL: Yes edema (Trace edema) Neuro: COMMON NORMALS: patient oriented x3 Skin: COMMON NORMALS: no rashes or lesions noted GENERAL SKIN EXAM: no rashes or lesions noted Data 12/04/24 15:00 12/06/24 04:47 Micro: Microbiology 12/04/24 16:00 Blood Culture - Preliminary Blood NEGATIVE TO DATE 12/04/24 15:55 Blood Culture - Preliminary Blood NEGATIVE TO DATE A&P Assessment and plan (1) Acute respiratory failure with hypoxia: No O2 at baseline. # L/min O2 on admission secondary to CHFe and COPDe - started steroids - monitor O2 sats (2) New onset of congestive heart failure: LVEF 60% with mild hypokinesis of the basal inferior lateral segment. Grade II/IV diastolic dysfunction. Continue IV Lasix twice daily Telemetry monitoring Monitor I's and O's and daily weights (3) Abnormal stress test: Cardiac cath in the AM Cardiology following (4) Pulmonary edema: As above (5) COPD exacerbation: Reports history of COPD - started steroids today - continue duoneb (6) Tobacco use: Counseled on smoking cessation (7) GERD (gastroesophageal reflux disease): Continue omeprazole (8) Benign essential hypertension: BP has been elevated She is on losartan and metoprolol at home; restarted losartan She was not taking HCTZ, hydralazine, or imdur; will discontinue HCTZ Plan Cardiac cath in the AM Continue IV diuresis and steroids PDMP PDMP Reviewed: Not Reviewed Attestations 2 Medical Necessity Statement*: Patient requires continued hospitalization for cardiac cath, IV diuresis, and steroids Time Spent in Patient Care: Total time spent = 45 mins. Coding Level of Care Code 72964 Diagnoses Acute respiratory failure with hypoxia J96.01 New onset of congestive heart failure I50.9 Abnormal stress test R94.39 Pulmonary edema J81.1 COPD exacerbation J44.1 Tobacco use Z72.0 GERD (gastroesophageal reflux disease) K21.9 Benign essential hypertension I10
[2024-12-06] MEDS: ipratropium-albuterol 3 mL Neb INHALATION ×2 (13:24→20:20)
--- NOTE | 2024-12-06 13:32 | NMCV_ITS ---
NM dontrell perf SPECT r/s* [id number] Arlen Santo Age: 54 Gender: F : 1970 Exam Date: 12/06/2024 07:01 Ordering Phys: Eda Mullins MD Technologist: CEE Becerra Exam Location: [facility] Indications: cp STRESS TEST Please see separate stress test report in [facility] for full findings IMAGE PROTOCOL Rest/Stress 1 Lexiscan Day Radiopharmaceutical Dose (mCi) Administration Site Administered by Rest: Tc-99m 10.7 IV CEE Almodovar Sestamibi Stress:Tc-99m 32.9 IV CEE Becerra Sestamicoleen Rest: 06-Dec-2024 60 Discovery 630 Stress: 06-Dec-2024 30 Discovery 630 0.4mg Lexiscan. Images obtained in supine and prone position. SPECT RESULTS Technical Quality: Good Raw Data Analysis: Normal Image Corrections: No attenuation or motion correction applied Summed Stress Score: 4 Summed Rest Score: 0 Summed Difference Score: 4 PERFUSION FINDINGS Moderate area of minimal to moderately decreased tracer uptake involving the mid and mid anterolateral and mid inferolateral segments with significant reversibility. Small area of slightly decreased tracer uptake was noted in the apical anterior region with some reversibility FUNCTIONAL RESULTS (calculated via Gated SPECT) Stress Image LV EF (%): 40 Stress EDV (mL):142 TID: 0.94 Stress ESV (mL):85 FUNCTIONAL FINDINGS: Segmental wall motion revealed mild diffuse hypokinesia of the inferior wall and the apex IMPRESSIONS 1. Myocardial perfusion imaging revealing moderate area reversible defect involving the anterolateral and inferolateral region, suggestive of ischemia in the distribution of the left circumflex artery. 2. Diminished LV ejection fraction of 40% 3. LV wall motion analysis revealing mild diffuse hypokinesia of the inferior wall and the apex 4. Mildly dilated LV cavity with end-systolic volume of 85 ml No similar previous studies are available for comparison Dr Kasi Don MD FACC (Electronically Signed) Final Date: 06 December 2024 12:23 S
[2024-12-06] MEDS: enoxaparin 40 mg/0.4 mL Syringe SUBCUT (16:03)
[2024-12-06] MEDS: budesonide 0.5 mg/2 mL Neb INHALATION (20:20)
[2024-12-06] MEDS: amitriptyline 25 mg Tablet PO (20:45)
[2024-12-07] VITALS (40 sets, daily range): BP systolic 89–150; BP diastolic 62–85; PULSE 70–94; RESP 11–26; TEMP 36.5–36.8; O2SAT 88–99
[2024-12-07] MEDS: ipratropium-albuterol 3 mL Neb INHALATION ×3 (02:41→14:00)
[2024-12-07 05:03] LABS: Basophils # 0.1 10^3/uL (0.0-0.1); Basophils % 0.8 %; Eosinophils # 0.1 10^3/uL (0.0-0.8); Eosinophils % 1.7 %; Hematocrit 45.7 % (36-47); Lymphocytes # 2.5 10^3/uL (0.8-4.8); Lymphocytes % 32.6 %; Mean Corpuscular HGB Conc 34.8 g/dL (30-55); Mean Corpuscular Hemoglobin 34.7 pg (27-33); Mean Corpuscular Volume 99.8 fl (85-98); Mean Platelet Volume 8.9 fL (7.4-10.4); Monocytes # 0.9 10^3/uL (0.2-0.9); Monocytes % 11.7 %; Neutrophils # 3.97 10^3/uL (1.8-7.7); Neutrophils % 52.8 %; Nucleated Red Blood Cells % 0 %; Platelet Count 268 10^3/cmm (157-399); Red Blood Count 4.58 10^6/uL (3.85-5.65); Red Cell Distribution Width 16.7 % (12.1-15.1); White Blood Count 7.52 10^3/uL (3.29-11.43)
[2024-12-07 05:33] LABS: Anion Gap 19.5 (5-19); Blood Urea Nitrogen 28 mg/dL (6-20); Calcium 9.9 mg/dL (8.5-10.5); Carbon Dioxide 26 mmol/L (22-29); Chloride 95 mmol/L (98-107); Creatinine Clr Calc Pharmacy 73.3084; Glomerular Filtration Rate 64.8 mL/min (90-130); Glucose 124 mg/dL (65-115); Osmolality Calculated 289 mOsm/kg (285-295); Potassium 4.5 mmol/L (3.5-5.1); Sodium 136 mmol/L (136-145)
[2024-12-07] MEDS: aspirin 325 mg Tablet PO (06:07)
[2024-12-07] MEDS: diphenhydrAMINE 50 mg Capsule PO (06:07)
[2024-12-07] MEDS: sodium chloride 0.9% 1,000 ML 50 ML IV (06:08)
--- NOTE | 2024-12-07 06:17 | XACV_ITS ---
Exam Room: [facility] Ht: 170 cm Wt: 81 kg BSA: 1.97 m2 Gender: Female : 1970 Performing Physician(s): Dr. Leslie Any Known Allergies: Penicillins Exam Priority: Routine Procedure(s): Procedure Description: Diagnostic procedure Procedure Description: Left Heart Catheterization Procedure Description: Left ventriculography Procedure Description: Coronary Angiography Procedure Description: Pressure Wire Arian GALINDO; Diagnostic Cath Status: Urgent Diagnostic Findings * Left main is a short medium caliber vessel with no significant stenotic lesions. * The Left anterior descending artery is a medium caliber vessel which appears to wraparound the LV apex. Proximal to the mid LAD was found to have moderate diffuse coronary calcification. The proximal LAD was found to have an eccentric around 50 to 60% lesion. Mid LAD was found to have extrinsic compression of around 50%. Minimal intimal irregularities are noted to the distal LAD. The first and the second diagonal branch is also found to have 20 to 30% diffuse tubular narrowing proximally. * The circumflex artery is a medium to large caliber codominant vessel. Minimal intimal irregularities and coronary calcification was noted in the proximal segment. The first obtuse marginal branch was found to have 20 to 30% tubular narrowing proximally. No other significant stenotic lesions. * The right coronary artery has a high and posterior takeoff. Is a codominant vessel. 30 to 40% diffuse irregular narrowing was noted in the proximal and mid segment of the artery. The PLV branches rudimentary. The PDA branch was found to have around 40 to 50% ostial narrowing. * IFR of the proximal LAD lesion was performed. The left main was engaged with the XB 3.06 Nauruan guider. IV heparin was used as per protocol. iFR wire was advanced in the left main and pressure was equalized. The wire was advanced across the lesion in the proximal LAD and IFR was measured. iFR was 0.91, not significant for stenosis. PCI Status: Urgent Conclusions 1. 54-year-old white female with history of hypertension, dyslipidemia, COPD and smoking abuse, admitted to hospital with new onset of heart failure. She had a Myocardial perfusion imaging which revealed small to moderate area of reversible defect involving the anterolateral and inferolateral wall regions. In view of the risk factors and the clinical presentation in order to further evaluate her coronary status, a cardiac catheterization was recommended. Patient underwent left heart catheterization of the left and right coronary angiogram and LV angiogram today. The findings are as follows. 2. No significant left main disease. Moderate diffuse calcification of the proximal to mid LAD. Around 50 to 60% lesion in the proximal LAD. 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 Mild diffuse disease in the other vessels as mentioned above. Codominant left circumflex artery. LV ejection fraction of 50%. LVEDP of 22 mmHg. 3. The angiogram findings were discussed and reviewed with Dr. Leslie.. It was thought to be appropriate to consider IFR of the proximal LAD lesion and consider PCI. Dr. Leslie concurred with this plan and to go over further management of this patient at this point. 4. IFR of the proximal LAD was performed IFR was 0.91, indicating non significant stenosis. 5. Recommendations: Medical management of CAD and risk factors. Interventional RX Recommendation: medical therapy and/or counseling Diagnostic RX Recommendation: medical therapy and/or counseling Ventriculography Ejection Fraction: 50.0 % LV EDP: 22 mmHg Left Ventriculography Findings: * LV gram was performed the CINTRON projection. The LV cavity appears to be normal. There is mild hypokinesia of the mid anterior and the LV apex. The overall LV ejection fraction was 50%. No significant mitral valve prolapse or mitral regurgitation. The LVEDP was 22 mmHg. Pressures Phase:Rest AO : 112 / 87 ( 98 ) @ 8:18:00 AM 121 / 86 ( 104 ) @ 8:29:00 AM 152 / 73 ( 105 ) @ 8:35:00 AM 149 / 76 ( 101 ) @ 8:35:00 AM 134 / 75 ( 100 ) @ 9:05:00 AM 124 / 53 ( 76 ) @ 9:15:00 AM LV : 152 / 8 / 19 @ 8:34:00 AM 148 / 6 / 21 @ 8:35:00 AM 151 / 8 / 22 @ 8:35:00 AM Valves Phase:DefaultPhase AV : 0.0 @ 8:25:26 AM AV Mean Gradient: 0.0 @ 8:25:26 AM Clinical Evaluation EBL: 5mL-10mL Procedural Details Procedure Consent Obtained. Pre-Procedure Time Out. Identified patient by full name and date of as verbalized by the patient/guarantor. Does the consent match the physician's order: Yes. Accurate & Complete Informed Consent: Yes. Inpatient/Outpatient History & Physical on Chart: Yes. If H&P is completed, is and addenduem needed: No. Visualize and Verify Site with Patient/Guarantor: N/A. Relevant Radiology Images available: Yes. The risks, benefits, and alternatives of sedation and/or procedure were discussed by physician. The patient agrees to continue. Procedure started. [facility] Clinical Fraility Score: 4: Vulnerable. Weight Shifter Indications: New onset CHF, abnormal stress test. Chest Pain Symptom Assessment: Typical Angina Symptoms. Cardiovascular Instability: No. PERRLA. Strong, equal hand transportation technician bilaterally. Lungs clear x 5 lobes. IV Site on Arrival: 20 gauge in the right anticubital. IV Fluids: 0.9% NaCl at KVO. 300 mL infused prior to laborer yard. Pre Procedural Pulses: bilateral dorsalis pedis was 2+. Pre Procedural Pulses: bilateral posterior tibial was 3+. Pre Procedural Pulses: bilateral radial was 2+. Oxygen started at 3liters/min via nasal canula. right groin was prepped with chloroprep then draped in the usual sterile fashion. right radial was prepped with chloroprep then draped in the usual sterile fashion. Physician notified. Baseline sample Acquired. HR: 66 BPM. Patient's family unavailable. Patient requests for Dr. Don to call her life partener, Tomas Dominguez, at the completion of the procedure. Equipment: 6F - Radial. Cardiac Cath Pack. ACIST Manifold Kit Model BT 2000. Heparinized Saline (2 units/mL), 1000 mL bag. Physician arrived. Physician scrubbed in. Immediate Pre-Procedure Time Out. Correct Patient: Yes; Correct Procedure: Yes; Correct Site: Yes; Correct Patient Position: Yes; Correct Supplies: Yes; Dried Flammable Prep: Yes; Blood Products Available: N/A;. Lidocaine 1% infiltrated to the right radial. Arterial access obtained. A 5 omani Karl catheter in over the exchange J wire. Multiple views taken of left coronary artery. Catheter redirected to the RCA. Catheter removed over the exchange J wire. A 5 omani JR4 catheter in over the exchange J wire. Catheter removed over the exchange J wire. A 5 omani AR MOD catheter in over the exchange J wire. Multiple views taken of right coronary artery. Catheter removed over the exchange J wire. A 5 omani Angled Pig catheter in over the exchange J wire. EDP Sample taken: LV 152/8,19; HR: 76 BPM; SpO2: 97%. LV gram performed in CINTRON @ 10 mL/second for a total of 30 mL. EDP Sample taken: LV 148/6,21; HR: 77 BPM; SpO2: 97%. Pullback taken: LV 151/8,22; AO 152/73(105); Mean: 0mmHg, Peak to Peak: 0mmHg, SEP: 9sec/min; HR: 77 BPM; SpO2: 96%. Catheter removed over the exchange J wire. Physician scrubbed out to review cineography. Side port of sheath attached to heparinized saline flush at KVO to maintain patency. Dr. Leslie called to view cineography. Dr. Leslie here. Dr. Don called the patients life partner, Tomas, with no answer. A voicemail was left. Dr. Leslie scrubbed in. 6 omani CLS 3 guide catheter was inserted over the exchange J wire. iFR guidewire was advanced through the guide catheter to lesion in the prox LAD. iFR wire out to reshape. iFR wire in. iFR of the prox LAD 0.91. iFR wire out. Guide catheter out over the exchange J wire. Physician scrubbed out. A TR Band was successful obtaining hemostatsis at the Right Radial artery insertion site. Post Procedure: Pulses reassessed and unchanged. PERRLA. Strong, equal hand transportation technician bilaterally. No VTE prophylaxis required. Medication's Wasted: Lidocaine 1% = 18 mL. Medication's Wasted: Nitro = 49.8 mg. Medication's Wasted: Heparin = 2000 units. Medication's Wasted: Other = Versed 1 mg. Medication's Wasted: Other = Fentanyl 50 mcg. Total IV fluids: 40 mL. Post-op diagnosis: iFR of the Prox LAD, no intervention. Complications: none. Estimated blood loss: 5mL-10mL. Responsiveness - Normal response to verbal stimuli; alert and oriented, PERRLA. Airway - Unaffected, no intervention required; spontaneous ventilation. Circulation: W/N/L, pulses unchanged. Nausea/Vomiting: No. Procedure completed. Patient transferred by bed to 1st floor. Vital chart was stopped. Access Site Site: Right Radial artery Sheath Size: 6 Fr Hemostasis Method: TR Band Hemostasis Success: Successful Complication Findings: NONE. Procedure Medications Start: 7:03 AM Stop: 7:03 AM Medication: Versed Amount: 1 mg Route: I.V. Start: 7:03 AM Stop: 7:03 AM Medication: Fentanyl Amount: 50 mcg Route: I.V. Start: 7:11 AM Stop: 7:11 AM Medication: Verapamil Amount: 5 mg Route: I.A. Start: 7:11 AM Stop: 7:11 AM Medication: Nitrogylcerin Amount: 200 mcg Route: I.A. Start: 7:13 AM Stop: 7:13 AM Medication: 0.9% Saline Amount: 250 ml/hr Route: I.V. bolus Start: 7:19 AM Stop: 7:19 AM Medication: Heparin Amount: 5000 units Route: I.V. Start: 7:59 AM Stop: 7:59 AM Medication: Heparin Amount: 4000 units Route: I.V. I, the attending physician, have reviewed and verified all procedure medications. Yes, all medications given per verbal order History/Risk Factors Hypertension: Yes Dyslipidemia: No Peripheral Arterial Disease (PAD): No Myocardial Infarction (MA): No Obesity: No Renal Disease: No Tobacco Use: Current/Recent(w/in 1 year) Prior Interventions PCI: No CABG: No Valve Surgery: No Report Signatures Interventional Workflow Finalized by Jagdeep Leslie MD on 12/07/2024 01:53 PM Diagnostic Workflow Finalized by Dr Kasi Dno MD [facility] on 12/07/2024 10:28 AM
--- NOTE | 2024-12-07 06:54 | PM.PN ---
Subjective Subjective: The patient is feeling okay. No chest pain or chest tightness. The shortness of breath is improved. No new symptoms. Medications: Medication Review Details: Current Medications Acetaminophen (Acetaminophen 325 Mg Tablet) 650 mg PO Q6H PRN PRN Reason: Mild/Mod Pain Or Temp >/= 101 Last Admin: 12/05/24 11:39 Dose: 650 mg Albuterol Sulfate (Albuterol 2.5 Mg/3 Ml Neb) 2.5 mg INHALATION QID.RESPIRATORY PRN PRN Reason: SHORTNESS OF BREATH Albuterol/Ipratropium (Ipratropium-Albuterol 3 Ml Neb) 3 ml INHALATION Q6H.RESP CONOR Last Admin: 12/07/24 02:41 Dose: 3 ml Amitriptyline HCl (Amitriptyline 25 Mg Tablet) 25 mg PO BEDTIME CONOR Last Admin: 12/06/24 20:45 Dose: 25 mg Budesonide (Budesonide 0.5 Mg/2 Ml Neb) 0.5 mg INHALATION BID.RESPIRATORY [facility] Last Admin: 12/06/24 20:20 Dose: 0.5 mg Buspirone HCl (Buspirone 10 Mg Tablet) 5 mg PO Q12H PRN PRN Reason: Anxiety Calcium Carbonate (Calcium Carbonate 500 Mg Chew Tablet) 1,000 mg PO Q4H PRN PRN Reason: DYSPEPSI Duloxetine HCl (Duloxetine 60 Mg Capsule) 60 mg PO DAILY [facility] Last Admin: 12/06/24 09:25 Dose: 60 mg Enoxaparin Sodium (Enoxaparin 40 Mg/0.4 Ml Syringe) 40 mg SUBCUT Q24H [facility] Last Admin: 12/06/24 16:03 Dose: 40 mg Furosemide (Furosemide 10 Mg/Ml Sdv 4ml) 40 mg IVP BIDAC CONOR Last Admin: 12/06/24 16:03 Dose: 40 mg Hydralazine HCl (Hydralazine 50 Mg Tablet) 50 mg PO TID [facility] Last Admin: 12/06/24 20:45 Dose: 50 mg Hydroxychloroquine Sulfate (Hydroxychloroquine 200 Mg Tablet) 200 mg PO BID [facility] Last Admin: 12/06/24 16:03 Dose: 200 mg Sodium Chloride (Sodium Chloride 0.9%) 1,000 mls @ 50 mls/hr IV .Q20H ONE Stop: 12/08/24 01:59 Last Admin: 12/07/24 06:08 Dose: 50 mls/hr Isosorbide Mononitrate (Isosorbide Mononitrate Er 30 Mg Tablet) 30 mg PO DAILY [facility] Last Admin: 12/06/24 09:25 Dose: 30 mg Lanolin (Lanolin Oint 7 Gm) 1 applic TOPICAL PRN PRN PRN Reason: DRYNESS Last Admin: 12/05/24 11:59 Dose: 1 applic Losartan Potassium (Losartan 50 Mg Tablet) 100 mg PO DAILY [facility] Last Admin: 12/06/24 09:25 Dose: 100 mg Metoprolol Succinate (Metoprolol Succinate Er (24 Hr) 100 Mg Tablet) 200 mg PO DAILY [facility] Last Admin: 12/06/24 09:24 Dose: 200 mg Ondansetron HCl (Ondansetron 2 Mg/Ml Sdv 2 Ml) 4 mg IVP Q8H PRN PRN Reason: vomiting, or N/V if npo Ondansetron HCl (Ondansetron 2 Mg/Ml Sdv 2 Ml) 4 mg IVP Q2M PRN PRN Reason: NAUSEA Pantoprazole Sodium (Pantoprazole Dr 40 Mg Tablet) 40 mg PO DAILY [facility] Last Admin: 12/06/24 09:25 Dose: 40 mg Potassium Chloride (Potassium Chloride Er 20 Meq Tablet) 40 meq PO BID [facility] Last Admin: 12/06/24 16:03 Dose: 40 meq Prednisone (Prednisone 20 Mg Tablet) 60 mg PO DAILY [facility] Stop: 12/12/24 08:59 Tizanidine HCl (Tizanidine 4 Mg Tablet) 2 mg PO BEDTIME [facility] Last Admin: 12/06/24 20:45 Dose: Not Given Vitamin D (Cholecalciferol (Vitamin D3) 5,000 Unit Tablet) 5,000 unit PO DAILY [facility] Last Admin: 12/06/24 09:24 Dose: 5,000 unit Vitals/I&O/Wt Last Vital Signs Temp 98.2 F 12/07/24 04:00 Pulse 74 12/07/24 04:00 Resp 23 H 12/07/24 04:00 BP 141/78 12/07/24 04:00 Pulse Ox 91 12/07/24 04:00 O2 Del Method Nasal Cannula 12/07/24 04:00 O2 Flow Rate 3 12/04/24 17:15 12/06/24 12/06/2425 14:59 22:59 06:59 Intake Total 480 / 480 360 / 840 0 / 840 Balance 480 / 480 360 / 840 0 / 840 Weight last 48 hrs Weight 178 lb 9.6 oz Weight 178 lb 3.2 oz Weight 183 lb 6.4 oz Physical Exam Narrative: GENERAL: The patient is alert and oriented times three. Not in any acute distress. Moderately obese HEENT: No significant pallor, icterus or lymphadenopathy.Oral cavity: There are no mucous membrane lesions. NECK: Trachea appears to be central. No masses noted. No JVD or thyromegaly appreciated. RESPIRATORY: Chest is symmetrical. No intercostals muscle retraction or any accessory muscle activation. There is no chest wall tenderness. Breath sounds are heard bilaterally. No rales or rhonchi. No evidence of any consolidation. BREASTS: Deferred. HEART: The heart sounds are normal. No S3 or S4. No significant murmurs. No pericardial rub ABDOMEN: No vessel pulsations or distention. No tenderness. No organomegaly appreciated. Bowel sounds are normally heard. : Deferred. RECTAL: Deferred. LYMPHATIC: No lymphadenopathy noted in the neck. EXTREMITIES: No edema or cyanosis. No clubbing. The peripheral pulses are palpable in fairly good volume and. Amplitude MUSCULOSKELETAL: No acute joint deformities or swelling SKIN: Port wine birthmark on the chin and also upper part of the chest. Also seems to have some lupus rashes in the upper extremities NEUROPSYCHIATRIC: The patient is alert and oriented x3. Appears to be in a good mood. No tremors or rigidity noted. Data 12/07/24 04:02 12/07/24 04:02 Other Labs: Laboratory Last Values WBC 7.52 10^3/uL (3.29-11.43) 12/07/24 04:02 RBC 4.58 10^6/uL (3.85-5.65) 12/07/24 04:02 Hgb 15.90 g/dL (11.27-16.99) 12/07/24 04:02 Hct 45.7 % (36-47) 12/07/24 04:02 MCV 99.8 fl (85-98) H 12/07/24 04:02 MCH 34.7 pg (27-33) H 12/07/24 04:02 MCHC 34.8 g/dL (30-55) 12/07/24 04:02 RDW 16.7 % (12.1-15.1) H 12/07/24 04:02 Plt Count 268 10^3/cmm (157-399) 12/07/24 04:02 MPV 8.9 fL (7.4-10.4) 12/07/24 04:02 Neut % (Auto) 52.8 % 12/07/24 04:02 Lymph % (Auto) 32.6 % 12/07/24 04:02 [place] % (Auto) 11.7 % 12/07/24 04:02 Eos % (Auto) 1.7 % 12/07/24 04:02 Baso % (Auto) 0.8 % 12/07/24 04:02 Neut # (Auto) 3.97 10^3/uL (1.8-7.7) 12/07/24 04:02 Lymph # (Auto) 2.5 10^3/uL (0.8-4.8) 12/07/24 04:02 [place] # (Auto) 0.9 10^3/uL (0.2-0.9) 12/07/24 04:02 Eos # (Auto) 0.1 10^3/uL (0.0-0.8) 12/07/24 04:02 Baso # (Auto) 0.1 10^3/uL (0.0-0.1) 12/07/24 04:02 Nucleated RBC % (auto) 0 % 12/07/24 04:02 Nucleated RBCs # 0.0 /100WBC 12/07/24 04:02 PT 13.00 SECONDS (12.1-14.9) 12/04/24 15:00 INR 0.91 (0.8-1.2) 12/04/24 15:00 Specimen Type Arterial 12/04/24 15:43 Sample Site Radial, left 12/04/24 15:43 ABG pH 7.43 (7.35-7.45) 12/04/24 15:43 ABG pCO2 43.6 mmHg (35-45) 12/04/24 15:43 ABG pO2 81.4 mmHg (80.0-100.0) 12/04/24 15:43 ABG HCO3 28.7 mmol/L (22-26) H 12/04/24 15:43 ABG Base Excess 3.7 mmol/L (-2.0-2.0) H 12/04/24 15:43 Chandana Test Pos 12/04/24 15:43 Hematocrit 43.6 % (37-47) 12/04/24 15:43 Hgb O2 Saturation 93.1 % (95-100) L 12/04/24 15:43 Carboxyhemoglobin 3.2 %THgb (0.4-20.1) 12/04/24 15:43 Methemoglobin 0.2 % (0.4-1.5) L 12/04/24 15:43 Total Hemoglobin 14.2 g/dL (12-16) 12/04/24 15:43 O2 Delivery Device Nc 12/04/24 15:43 O2 Liters/Min 4.0 % 12/04/24 15:43 Red Leader ID [place] 12/04/24 15:43 Sodium 136 mmol/L (136-145) 12/07/24 04:02 Potassium 4.5 mmol/L (3.5-5.1) 12/07/24 04:02 Chloride 95 mmol/L (98-107) L 12/07/24 04:02 Carbon Dioxide 26 mmol/L (22-29) 12/07/24 04:02 Anion Gap 19.5 (5-19) H 12/07/24 04:02 BUN 28 mg/dL (6-20) H 12/07/24 04:02 Creatinine 0.9 mg/dL (0.5-0.9) 12/07/24 04:02 GFR Calculation 64.8 mL/min (90-130) L 12/07/24 04:02 Glucose 124 mg/dL (65-115) H 12/07/24 04:02 Estimat Average Glucose 128 12/05/24 04:08 Hemoglobin A1c 6.1 % (4.0-6.0) H 12/05/24 04:08 Calculated Osmolality 289 mOsm/kg (285-295) 12/07/24 04:02 Calcium 9.9 mg/dL (8.5-10.5) 12/07/24 04:02 Magnesium 1.7 mg/dL (1.7-2.3) 12/05/24 04:08 Total Bilirubin 0.4 mg/dL (0.15-1.2) 12/04/24 15:00 AST 51 U/L (0-32) H 12/04/24 15:00 ALT 33 U/L (0-33) 12/04/24 15:00 Alkaline Phosphatase 114 U/L (35-105) H 12/04/24 15:00 Troponin T Baseline 39 ng/L (0-10) H 12/04/24 15:00 Troponin T 120 Minute 39.81 ng/L (0-10) H 12/04/24 16:57 Delta Troponin T 0.81 ABS# (0-10) 12/04/24 16:57 Troponin T Hi Sens 6Hr 33.05 ng/L (0-10) H 12/04/24 20:58 Troponin T Hi Sens 6Hr Delta -5.95 ng/L (0-12) L 12/04/24 20:58 NT-Pro-B Natriuret Pep 2667 pg/mL (0-125) H 12/04/24 15:00 Total Protein 6.2 g/dL (6.6-8.7) L 12/04/24 15:00 Albumin 3.9 g/dL (3.5-5.2) 12/04/24 15:00 Globulin 2.3 g/dL (1.3-4.6) 12/04/24 15:00 Triglycerides 107 mg/dL (0-150) 12/05/24 04:08 Cholesterol 255 mg/dL (0-200) H 12/05/24 04:08 LDL Cholesterol, Calc 147 mg/dL (50-129) H 12/05/24 04:08 HDL Cholesterol 87 mg/dL (60-100) 12/05/24 04:08 LDL/HDL Ratio 1.69 RATIO (0.00-3.22) 12/05/24 04:08 Cholesterol/HDL Ratio 2.93 mg/dL (0.0-4.40) 12/05/24 04:08 TSH 0.82 uIU/mL (0.27-4.20) 12/05/24 04:08 Influenza A (PCR) Negative (Negative) 12/04/24 15:10 Influenza Type B (PCR) Negative (Negative) 12/04/24 15:10 RSV (PCR) Negative (Negative) 12/04/24 15:10 SARS-CoV-2 (PCR) Negative (Negative) 12/04/24 15:10 A&P Assessment and plan (1) New onset of congestive heart failure: The etiology of the heart failure is not clear at this time. Hypertensive heart disease, coronary ischemia, COPD exacerbation, etc. are considerations. Patient seems to be responding to the IV Lasix. This may be continued. In view of the abnormal Myocardial perfusion imaging, coronary ischemia causing this is a strong consideration. To further evaluate the coronary status, she requires a cardiac catheterization. The patient is scheduled for the cardiac catheterization this morning. (2) Benign essential hypertension: Blood pressure seems to be under control. May continue on the current management. (3) Seropositive rheumatoid arthritis of multiple sites: May continue on the current management. (4) Subacute cutaneous lupus erythematosus: Continue on the current management as per rheumatology. (5) Acute respiratory failure with hypoxia: Most likely from the COPD exacerbation/congestive heart failure. The respiratory status is currently stable (6) Tobacco use: Patient is strongly advised to quit smoking. She seems to understand implications. Plan Based on the angiogram findings, further recommendations will be made. PDMP PDMP Reviewed: Not Reviewed Attestations Medical Necessity Statement*: Patient may require 1 more midnight stay, if she requires a PCI after the angiogram. Coding Level of Care Code 57345 Diagnoses New onset of congestive heart failure I50.9 Benign essential hypertension I10 Seropositive rheumatoid arthritis of multiple sites M05.79 Subacute cutaneous lupus erythematosus L93.1 Acute respiratory failure with hypoxia J96.01 Tobacco use Z72.0
--- NOTE | 2024-12-07 06:55 | W.PM.OPSUD ---
Surgery/Procedure H&P Update DATE OF PROCEDURE: December 07, 2024 DATE H&P PERFORMED: 12/05/24 H&P UPDATE INFORMATION: I have reviewed H&P completed within last 30 days, I have examined patient prior to procedure and No changes to prior documentation PREOP DIAGNOSIS: ashd PRIMARY INDICATION FOR PROCEDURE: Abnormal Myocardial perfusion imaging/congestive heart failure PLANNED PROCEDURE: Operation Date: 12/07/24 07:00 Proposed Procedures p Cardiac Catheterization(Left) - Kasi Don MD PATIENT REASSESSED PRIOR TO SEDATION, WITH NO CHANGE NOTED: Yes PHYSICAL EXAM: alert, oriented x 3, clear to auscultation bilaterally and regular rate & rhythm AIRWAY EVAL/ANESTHESIA PLAN: normal airway, see other exam findings, ASA II, Monitored Anesthesia, Local Anesthesia, Risks, benefits & alternatives of sedation and/or procedure discussed and Patient agrees to continue as planned
[2024-12-07] MEDS: pantoprazole DR 40 mg Tablet PO (09:27)
[2024-12-07] MEDS: FUROsemide 10 mg/mL SDV 4mL 40 MG IVP (09:27)
[2024-12-07] MEDS: metoprolol succinate ER (24 HR) 100 mg Tablet 200 MG PO (09:27)
[2024-12-07] MEDS: losartan 50 mg Tablet 100 MG PO (09:28)
[2024-12-07] MEDS: duloxetine 60 mg Capsule PO (09:28)
[2024-12-07] MEDS: hyDRALAzine 50 mg Tablet PO ×2 (09:28→15:26)
[2024-12-07] MEDS: predniSONE 20 mg Tablet 60 MG PO (09:28)
[2024-12-07] MEDS: isosorbide mononitrate ER 30 mg Tablet PO (09:28)
[2024-12-07] MEDS: cholecalciferol (vitamin D3) 5,000 unit Tablet 5000 UNIT PO (09:28)
[2024-12-07] MEDS: potassium chloride ER 20 mEq Tablet 40 MEQ PO (09:28)
[2024-12-07] MEDS: hydroxychloroquine 200 mg Tablet PO (09:29)
--- NOTE | 2024-12-07 10:11 | PC.NURSE ---
received from cardiac builder's labourer via bed at 0830.report received.pt is alert and awake and oriented x4.sr on monitor.right wrist with tr band on and inflated.right hand is warm to touch and with brisk capillary refill.no hematoma noted.palpable radial pulse noted distal to tr band.pt instructed in activity restrictions s/p radial artery procedure...and instructed to notify staff for any bleeding,pain,numbness,sob,or for any concerns at all.pt verb understanding of instructions
--- NOTE | 2024-12-07 11:31 | PM.DCS ---
Discharge Providers Date of Admission: 12/04/24 17:09 Date of Discharge: December 07, 2024 Attending Provider at Admission: Mason Gurrola DO Attending Provider at Discharge: Eda Mullins MD Consults: Inpatient consults to cardiology Primary Care Provider: Roberto Carlos Carrera Diagnoses at Discharge Discharge Diagnosis (1) Acute respiratory failure with hypoxia: Status: Resolved (2) COPD exacerbation: Status: Acute (3) New onset of congestive heart failure: Status: Acute (4) Coronary artery disease: Status: Acute (5) Abnormal stress test: Status: Acute (6) Benign essential hypertension: Status: Acute (7) Seropositive rheumatoid arthritis of multiple sites: Status: Acute Permanent problem details: Celebrex caused rash. (8) Subacute cutaneous lupus erythematosus: Status: Chronic (9) Tobacco use: Status: Chronic Reason for Visit Reason for Visit: RESP. DISTRESS Brief History: This is a 54-year-old female with COPD, tobacco use disorder, hypertension, dyslipidemia, SLE, rheumatoid arthritis, anxiety disorder, and GERD who presented with shortness of breath. She was hypoxic and required 5 L/min O2 in the ED. She is found to be in new onset CHF. She also had COPD exacerbation. Hospital Course Hospital Course She was started on IV diuresis with excellent response. Echocardiogram showed preserved LVEF and grade II/IV diastolic dysfunction. Cardiology was consulted. She had a positive nuclear stress test. She had a cardiac cath which showed moderate diffuse calcification in the proximal to mid LAD. iFR of the proximal LAD was 0.91 indicating nonsignificant stenosis. She was started on aspirin and atorvastatin. She will follow-up with cardiology as an outpatient. She was discharged home on low-dose Lasix. She was also treated for COPD exacerbation and saturating well on room air at time of discharge. She was counseled on smoking cessation for 4 minutes. Physical Exam Const: COMMON NORMALS: no acute distress and patient oriented x3 HENMT: COMMON NORMALS: normocephalic and atraumatic HEAD & SCALP: normocephalic and atraumatic Eye: COMMON NORMALS: Equal, round and reactive pupils present and EOMs intact bilaterally PUPIL: Yes Equal, round and reactive pupils present Neck/C-Spine: COMMON NORMALS: supple and no JVD Chest: COMMONS NORMALS: normal inspection of the chest and normal palpation of entire chest wall Resp: COMMON NORMALS: normal respiratory effort and clear to auscultation bilaterally AUSCULTATION: clear to auscultation bilaterally and crackles Cardio: COMMON NORMALS: no JVD, regular rate, regular rhythm and No murmurs present (Cardio) RATE: regular rate RHYTHM: regular rhythm GI: COMMON NORMALS: Normal to inspection, nondistended, normoactive bowel sounds present : COMMON NORMALS: Yes no CVA tenderness BLADDER/KIDNEY EXAM: Yes no CVA tenderness Back/Pelvis: COMMON NORMALS: no CVA tenderness Extremity: COMMON NORMALS: normal to inspection GENERAL: Yes edema (Trace edema) Neuro: COMMON NORMALS: patient oriented x3 Skin: COMMON NORMALS: no rashes or lesions noted GENERAL SKIN EXAM: no rashes or lesions noted Discharge Data Studies Completed and Pending Completed Studies During Hospitalization Category Date Time Status CTA chest [CT angio chest PE protcl [id number]] Stat Cat Scan 12/04/24 15:38 Completed XR chest 1V portable [id number] Stat Exams 12/04/24 14:53 Completed NM dontrell perf SPECT r/s* [id number] Routine Nuc Med 12/06/24 13:32 Completed CV. 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 Generalized increased pulmonary markings or vascularity within the lungs, more prominent lower lungs, most suggestive of pulmonary vascular congestion or CHF. Bilateral pneumonitis less likely. Possible trace effusion without significant effusion. Chest CTA 12/04/24 15:38 IMPRESSION: 1. No CT findings of pulmonary embolus. 2. Scattered ill-defined ground-glass opacity within the lungs that is more prominent more confluent within the lower lungs, along with small bilateral posterior pleural effusions and borderline to slightly prominent cardiac size. Findings suggest CHF with scattered edema and small effusions. 3. Mild arteriosclerosis thoracic aorta [id number] coronary artery calcification. 4. Incidental findings of cholelithiasis. Laboratory Results WBC 7.52 10^3/uL (3.29-11.43) 12/07/24 04:02 RBC 4.58 10^6/uL (3.85-5.65) 12/07/24 04:02 Hgb 15.90 g/dL (11.27-16.99) 12/07/24 04:02 Hct 45.7 % (36-47) 12/07/24 04:02 MCV 99.8 fl (85-98) H 12/07/24 04:02 MCH 34.7 pg (27-33) H 12/07/24 04:02 MCHC 34.8 g/dL (30-55) 12/07/24 04:02 RDW 16.7 % (12.1-15.1) H 12/07/24 04:02 Plt Count 268 10^3/cmm (157-399) 12/07/24 04:02 MPV 8.9 fL (7.4-10.4) 12/07/24 04:02 Neut % (Auto) 52.8 % 12/07/24 04:02 Lymph % (Auto) 32.6 % 12/07/24 04:02 [place] % (Auto) 11.7 % 12/07/24 04:02 Eos % (Auto) 1.7 % 12/07/24 04:02 Baso % (Auto) 0.8 % 12/07/24 04:02 Neut # (Auto) 3.97 10^3/uL (1.8-7.7) 12/07/24 04:02 Lymph # (Auto) 2.5 10^3/uL (0.8-4.8) 12/07/24 04:02 [place] # (Auto) 0.9 10^3/uL (0.2-0.9) 12/07/24 04:02 Eos # (Auto) 0.1 10^3/uL (0.0-0.8) 12/07/24 04:02 Baso # (Auto) 0.1 10^3/uL (0.0-0.1) 12/07/24 04:02 Nucleated RBC % (auto) 0 % 12/07/24 04:02 Nucleated RBCs # 0.0 /100WBC 12/07/24 04:02 PT 13.00 SECONDS (12.1-14.9) 12/04/24 15:00 INR 0.91 (0.8-1.2) 12/04/24 15:00 Specimen Type Arterial 12/04/24 15:43 Sample Site Radial, left 12/04/24 15:43 ABG pH 7.43 (7.35-7.45) 12/04/24 15:43 ABG pCO2 43.6 mmHg (35-45) 12/04/24 15:43 ABG pO2 81.4 mmHg (80.0-100.0) 12/04/24 15:43 ABG HCO3 28.7 mmol/L (22-26) H 12/04/24 15:43 ABG Base Excess 3.7 mmol/L (-2.0-2.0) H 12/04/24 15:43 Chandana Test Pos 12/04/24 15:43 Hematocrit 43.6 % (37-47) 12/04/24 15:43 Hgb O2 Saturation 93.1 % (95-100) L 12/04/24 15:43 Carboxyhemoglobin 3.2 %THgb (0.4-20.1) 12/04/24 15:43 Methemoglobin 0.2 % (0.4-1.5) L 12/04/24 15:43 Total Hemoglobin 14.2 g/dL (12-16) 12/04/24 15:43 O2 Delivery Device Nc 12/04/24 15:43 O2 Liters/Min 4.0 % 12/04/24 15:43 Drain Technician ID Lunaci 12/04/24 15:43 Sodium 136 mmol/L (136-145) 12/07/24 04:02 Potassium 4.5 mmol/L (3.5-5.1) 12/07/24 04:02 Chloride 95 mmol/L (98-107) L 12/07/24 04:02 Carbon Dioxide 26 mmol/L (22-29) 12/07/24 04:02 Anion Gap 19.5 (5-19) H 12/07/24 04:02 BUN 28 mg/dL (6-20) H 12/07/24 04:02 Creatinine 0.9 mg/dL (0.5-0.9) 12/07/24 04:02 GFR Calculation 64.8 mL/min (90-130) L 12/07/24 04:02 Glucose 124 mg/dL (65-115) H 12/07/24 04:02 Estimat Average Glucose 128 12/05/24 04:08 Hemoglobin A1c 6.1 % (4.0-6.0) H 12/05/24 04:08 Calculated Osmolality 289 mOsm/kg (285-295) 12/07/24 04:02 Calcium 9.9 mg/dL (8.5-10.5) 12/07/24 04:02 Magnesium 1.7 mg/dL (1.7-2.3) 12/05/24 04:08 Total Bilirubin 0.4 mg/dL (0.15-1.2) 12/04/24 15:00 AST 51 U/L (0-32) H 12/04/24 15:00 ALT 33 U/L (0-33) 12/04/24 15:00 Alkaline Phosphatase 114 U/L (35-105) H 12/04/24 15:00 Troponin T Baseline 39 ng/L (0-10) H 12/04/24 15:00 Troponin T 120 Minute 39.81 ng/L (0-10) H 12/04/24 16:57 Delta Troponin T 0.81 ABS# (0-10) 12/04/24 16:57 Troponin T Hi Sens 6Hr 33.05 ng/L (0-10) H 12/04/24 20:58 Troponin T Hi Sens 6Hr Delta -5.95 ng/L (0-12) L 12/04/24 20:58 NT-Pro-B Natriuret Pep 2667 pg/mL (0-125) H 12/04/24 15:00 Total Protein 6.2 g/dL (6.6-8.7) L 12/04/24 15:00 Albumin 3.9 g/dL (3.5-5.2) 12/04/24 15:00 Globulin 2.3 g/dL (1.3-4.6) 12/04/24 15:00 Triglycerides 107 mg/dL (0-150) 12/05/24 04:08 Cholesterol 255 mg/dL (0-200) H 12/05/24 04:08 LDL Cholesterol, Calc 147 mg/dL (50-129) H 12/05/24 04:08 HDL Cholesterol 87 mg/dL (60-100) 12/05/24 04:08 LDL/HDL Ratio 1.69 RATIO (0.00-3.22) 12/05/24 04:08 Cholesterol/HDL Ratio 2.93 mg/dL (0.0-4.40) 12/05/24 04:08 TSH 0.82 uIU/mL (0.27-4.20) 12/05/24 04:08 Influenza A (PCR) Negative (Negative) 12/04/24 15:10 Influenza Type B (PCR) Negative (Negative) 12/04/24 15:10 RSV (PCR) Negative (Negative) 12/04/24 15:10 SARS-CoV-2 (PCR) Negative (Negative) 12/04/24 15:10 Vitals Last Vital Signs Temp 98.2 F 12/07/24 08:00 Pulse 80 12/07/24 08:00 Resp 18 12/07/24 08:00 BP 124/82 12/07/24 09:28 Pulse Ox 94 12/07/24 10:00 O2 Del Method Nasal Cannula 12/07/24 08:00 O2 Flow Rate 2 12/07/24 08:00 Discharge Plan Discharge Patient Disposition: Home Condition: Stable Prescriptions: New prednisone 20 mg Tablet 60 mg PO DAILY Qty: 4 0RF furosemide [Lasix] 40 mg tablet 20 mg PO DAILY Qty: 30 0RF aspirin 81 mg tablet 81 mg PO DAILY Qty: 30 0RF atorvastatin [Lipitor] 40 mg tablet 40 mg PO QPM Qty: 30 0RF Continued losartan 100 mg tablet 100 mg PO DAILY 30 Days Qty: 30 2RF Rx Instructions: 340B buspirone 5 mg tablet 5 mg PO Q12H PRN (Reason: Anxiety) fluticasone propion-salmeterol [Advair Diskus] 250-50 mcg/dose blister with device 2 inh INHALATION BID tizanidine 2 mg tablet 20 mg PO BEDTIME albuterol sulfate 2.5 mg /3 mL (0.083 %) solution for nebulization 2.5 mg inhalation Q4H PRN (Reason: Shortness Of Breath) metoprolol succinate 200 mg Tablet Extended Release 24 Hr 200 mg PO DAILY prednisone 5 mg tablet 5 mg PO DAILY amitriptyline 25 mg tablet 25 mg PO BEDTIME hydrochlorothiazide 12.5 mg capsule 12.5 mg PO DAILY omeprazole 20 mg capsule,delayed release(DR/EC) 20 mg PO DAILY hydroxychloroquine 200 mg tablet 200 mg PO BID Rx Instructions: with food duloxetine 60 mg capsule,delayed release(DR/EC) 60 mg PO DAILY cholecalciferol (vitamin D3) [Vitamin D3] 125 mcg (5,000 unit) Tablet 125 mcg PO DAILY ibuprofen 800 mg Tablet 800 mg PO Q6H PRN (Reason: Pain, Moderate) Discontinued cefdinir 300 mg Capsule 300 mg PO BID Discharge Orders: Discharge Order (Routine); Ordered 12/07/24 Ordered By: Eda Mullins Referrals: Gifty Henao NP [Nurse Practitioner, Cardiology] - 12/17/24 2:30 pm Kasi Don MD [Physician, Cardiology] - 1 month Referral Note: We have notified your physician's clinic of the need for a follow-up appointment to be scheduled. If you have not heard from them within the next 2 business days, please call them directly. Roberto Carlos Carrera [Primary Care Provider, [facility]] - 12/14/24 1:15 pm Discharge Diet: Cardiac Discharge Activity: Resume usual activity Patient Instructions: Furosemide (By mouth), Prednisone (By mouth), Aspirin (By mouth), Atorvastatin (By mouth), Heart Failure (GEN), How to Stop Smoking (GEN), Cigarette Smoking and Your Health (GEN), COPD (Chronic Obstructive Pulmonary Disease) (GEN), Chronic Hypertension (DC), Acute Respiratory Failure (GEN), CHF Stoplight, Opioid Safety, Post Angiogram Home Care Instructions Activity Restrictions/Additional Instructions: Follow up with cardiology as scheduled. Monitor BP and bring log to appointment Discharge Attestations Time Spent in Discharge Care*: greater than 30 min Quality Metrics Clinical Quality Measures [ No reported AMI, CVA or VTE this stay] Coding Level of Care Code Acute Code for Chg Fwd Diagnoses Acute respiratory failure with hypoxia J96.01 COPD exacerbation J44.1 New onset of congestive heart failure I50.9 Coronary artery disease I25.10 Abnormal stress test R94.39 Benign essential hypertension I10 Seropositive rheumatoid arthritis of multiple sites M05.79 Subacute cutaneous lupus erythematosus L93.1 Tobacco use Z72.0
--- NOTE | 2024-12-07 15:38 | PC.NURSE ---
tr band slowly deflated and finally removed at 1530.no hematoma noted.right hand remains warm to touch and with brisk capillary refill.palpable radial pulse noted.site dressed with 2x2 gauze and secured with biocclusive drsg.pt instructed in activity restrictions s/p radial tr band removal...and instructed to notify staff for any bleeding,pain,numbness swelling or for any concerns at all.pt verb understanding of instructions
--- NOTE | 2024-12-07 17:06 | PC.NURSE ---
discharge instructions given and explained.pt verb understanding of instructions.discharged via w/c to exit,to wait for ride,per pt request.discharged at this time.spouse to drive pt home
== END 2024-12-07 17:08 | disposition home or self-care (01) | DRG 286 ==
LOC: ER 17:14 → CSU 17:21
PROVIDERS: Internal Medicine Cardiovascular Disease; Admitting Provider Internal Medicine; Emergency Provider Emergency Medicine; PCP Family Medicine; Visit Provider Student in an Organized Health Care Education/Training Program
PROC: 4A023N7 Measurement of Cardiac Sampling and Pressure, Left Heart, Percutaneous Approach (ICD-10-PCS; principal; 2024-12-07 07:00)
DX: I11.0 Hypertensive heart disease with heart failure (principal); J96.01 Acute respiratory failure with hypoxia; J44.1 Chronic obstructive pulmonary disease with (acute) exacerbation; I50.30 Unspecified diastolic (congestive) heart failure; I25.10 Atherosclerotic heart disease of native coronary artery without angina pectoris; M05.79 Rheumatoid arthritis with rheumatoid factor of multiple sites without organ or systems involvement; L93.1 Subacute cutaneous lupus erythematosus; E78.5 Hyperlipidemia, unspecified; F41.9 Anxiety disorder, unspecified; K21.9 Gastro-esophageal reflux disease without esophagitis; F17.210 Nicotine dependence, cigarettes, uncomplicated
CPT/HCPCS: 36415; 36600; 71045; 71275; 78452; 80048; 80053; 80061; 82805; 83036; 83735; 83880; 84443; 84484; 85025; 85610; 87040; 87637; 93005; 93017; 93306; 93458; 93571; 94640; 94760; 96365; 96372; 96374; 96375; 96376; 99152; 99153; 99285; A9500; C1769; C1887; C1894; J0456; J0696; J1644; J1650; J1938; J2250; J2785; J2919; J3010; J3490; J7030; J7050; J7512; J7613; J7626; J9999; Q0163; Q9967

== ENCOUNTER → 2024-12-17 13:20 | Outpatient (BNVA) | payer MEDICAID, SELFPAY | PROVIDERS: PCP Family Medicine; Visit Provider Nurse Practitioner Family | DX: I25.10 Atherosclerotic heart disease of native coronary artery without angina pectoris (principal); Z09 Encounter for follow-up examination after completed treatment for conditions other than malignant neoplasm; I11.0 Hypertensive heart disease with heart failure; I50.9 Heart failure, unspecified; J44.9 Chronic obstructive pulmonary disease, unspecified; Z79.82 Long term (current) use of aspirin; Z87.891 Personal history of nicotine dependence | CPT/HCPCS: 99214 ==

== ENCOUNTER → 2025-01-07 09:41 | Outpatient (BNVA) | payer MEDICAID, SELFPAY | PROVIDERS: PCP Family Medicine; Visit Provider Internal Medicine Cardiovascular Disease | DX: I25.10 Atherosclerotic heart disease of native coronary artery without angina pectoris (principal); I10 Essential (primary) hypertension; E78.5 Hyperlipidemia, unspecified; J44.1 Chronic obstructive pulmonary disease with (acute) exacerbation; L93.1 Subacute cutaneous lupus erythematosus; Z79.82 Long term (current) use of aspirin; Z87.891 Personal history of nicotine dependence | CPT/HCPCS: 99214 ==